=== PATIENT | female | born 1985 | race Caucasian/White ===

== ENCOUNTER 2017-07-21 08:00 | Outpatient (CLI) | payer BC | END 2017-07-21 08:01 | disposition home or self-care (01) | LOC: LAB.R 08:00 | PROVIDERS: ATTEND Family Medicine | DX: N89.8 Other specified noninflammatory disorders of vagina (principal); R10.2 Pelvic and perineal pain | CPT/HCPCS: 87086; 87480; 87510; 87660 ==

== ENCOUNTER 2017-07-24 18:58 | Outpatient (CLI) | payer BC ==
--- NOTE | 2017-07-26 16:23 | Ultrasound Report ---
PELVIC ULTRASOUND: 07/24/2017 CLINICAL INDICATION: Pelvic pain. COMPARISON: 01/13/2015 TECHNIQUE: Transabdominal pelvic ultrasound performed for global evaluation. Transvaginal pelvic ultrasound performed for detailed evaluation. Real-time scanning performed and static images obtained. FINDINGS: The uterus is anteverted, measuring 8.5 x 4.6 x 4.2 cm. The endometrial echo complex measures 6 mm. An IUD is noted within the endometrial canal. No focal myometrial lesion is seen. The right ovary measures 4.2 x 2.8 x 2.3 cm. Normal flow is seen. The left ovary measures 2.6 x 2.0 x 1.7 cm. There is either a mildly dilated left fallopian tube interposed between the uterus and left ovary or a left parovarian cyst, which measures 2.8 x 2.7 x 1.5 cm. Normal flow is seen to the left ovary. No free fluid is present. IMPRESSION: 1. IUD IN THE EXPECTED LOCATION. 2. LEFT PAROVARIAN CYST VERSUS MILDLY DILATED FALLOPIAN TUBE. 3. RESOLUTION OF PREVIOUSLY SEEN HEMORRHAGIC RIGHT OVARIAN CYST. JOB #: [id number] EXT JOB #: [id number] [facility]
== END 2017-07-24 18:59 | disposition home or self-care (01) ==
LOC: DI 18:58
PROVIDERS: ATTEND Family Medicine
DX: R10.2 Pelvic and perineal pain (principal); Z97.5 Presence of (intrauterine) contraceptive device
CPT/HCPCS: 76830; 76856

== ENCOUNTER 2018-01-13 16:08 | Observation (INO) | payer BC ==
--- NOTE | 2018-01-13 16:22 | ED Physician Documentation ---
History of Present Illness - Stated complaint Stated Complaint: UPPER BACK/CHEST PAIN - Chief complaint Chief Complaint: Cardiac - History obtained from History obtained from: Patient - History of Present Illness Timing: How many weeks ago (1) Pain level max: 8 Pain level now: 8 Quality: aching, dull Improved by: standing is more comfortable. Worsened by: movement - Additonal information Additional information: Patient is a 32 year old female with R sided back and chest pain x 1 week. Mild cough. No fevers. Feels mildly dyspneic. No trauma. No falls. Is on OCPs as well as zoloft. No smoking history. No travel. Seen at a walk in clinic today for same, had labs and cxr performed. Sent here for RUQ US. Review of Systems Ten Systems: 10 systems reviewed and negative Constitutional: denies: Fever, Chills Ears: denies: Ear pain Nose: denies: Rhinorrhea / runny nose, Congestion Throat: denies: Sore throat : denies: Now EGA Skin: denies: Rash Musculoskeletal: denies: Neck pain, Back pain Neurologic: denies: Headache PD PAST MEDICAL HISTORY - Past Medical History Past Medical History: Yes Psych: Depression - Past Surgical History Past Surgical History: Yes HEENT: Tonsil/Adenoidectomy - Present Medications Home Medications: Ambulatory Orders Medication Instructions Recorded Confirmed Sertraline HCl [Zoloft] 100 mg PO DAILY 01/13/15 01/13/15 - Allergies Allergies/Adverse Reactions: Allergies Allergy/AdvReac Type Severity Reaction Status Date / Time No Known Drug Allergies Allergy Verified 01/13/15 12:02 - Living Situation Living Situation: reports: With family Living Arrangement: reports: At home - Social History Does the pt smoke?: No Smoking Status: Never smoker Does the pt drink ETOH?: No Does the pt have substance abuse?: No - Family History Family history: reports: Non contributory - Immunizations Immunizations are current?: No - POLST Patient has POLST: No PD ED PE NORMAL - Vitals Vital signs reviewed: Yes - General General: Alert and oriented X 3, No acute distress - HEENT HEENT: PERRL, Moist mucous membranes, Pharynx benign - Neck Neck: Supple, no meningeal sign - Cardiac Cardiac: RRR - Respiratory Respiratory: No respiratory distress, Clear bilaterally - Abdomen Abdomen: Soft, Non distended, Other (mild TTP RUQ.) - Derm Derm: Warm and dry - Extremities Extremities: No edema, No calf tenderness / cord - Neuro Neuro: Alert and oriented X 3 - Psych Psych: Normal mood, Normal affect Results - Vitals Vitals: Vital Signs - 24 hr 01/13/18 01/13/18 16:10 17:57 Temperature 37.2 C Heart Rate 95 85 Respiratory 16 16 Rate Blood Pressure 134/99 H 129/75 O2 Saturation 95 97 Oxygen O2 Source Room air - EKG (time done) 1615 Rate: Rate (enter#) (96) Rhythm: NSR [place]: Normal Intervals: Normal SD QRS: Normal Ischemia: Normal ST segments - Labs Labs: Laboratory Tests 01/13/18 01/13/18 01/13/18 16:32 16:32 16:32 WBC 10.0 RBC 4.55 Hgb 12.0 Hct 37.3 MCV 81.9 MCH 26.3 L MCHC 32.1 RDW 14.3 Plt Count 295 MPV 7.6 L Neut # 7.4 H Lymph # 1.7 [place] # 0.9 Eos # 0.0 Baso # 0.0 Absolute Nucleated RBC 0.00 Nucleated RBC % 0.0 PT 12.7 H INR 1.1 Sodium 134 L Potassium 4.0 Chloride 99 L Carbon Dioxide 26 Anion Gap 9.0 BUN 9 Creatinine 0.6 Estimated GFR (MDRD) 117 Glucose 95 Calcium 8.7 Phosphorus 2.9 Magnesium 2.0 Total Bilirubin < 0.2 L AST 13 ALT < 10 L Alkaline Phosphatase 45 Total Protein 7.9 Albumin 3.6 Globulin 4.3 H Albumin/Globulin Ratio 0.8 L Urine Color Urine Clarity Urine pH Ur Specific [place] Urine Protein Urine Glucose (UA) Urine Ketones Urine Occult Blood Urine Nitrite Urine Bilirubin Urine Urobilinogen Ur Leukocyte Esterase Ur Microscopic Review Urine Culture Comments Urine HCG, Qual 01/13/18 17:02 WBC RBC Hgb Hct MCV MCH MCHC RDW Plt Count MPV Neut # Lymph # [place] # Eos # Baso # Absolute Nucleated RBC Nucleated RBC % PT INR Sodium Potassium Chloride Carbon Dioxide Anion Gap BUN Creatinine Estimated GFR (MDRD) Glucose Calcium Phosphorus Magnesium Total Bilirubin AST ALT Alkaline Phosphatase Total Protein Albumin Globulin Albumin/Globulin Ratio Urine Color YELLOW Urine Clarity CLEAR Urine pH 5.5 Ur Specific [place] 1.010 Urine Protein NEGATIVE Urine Glucose (UA) NEGATIVE Urine Ketones NEGATIVE Urine Occult Blood NEGATIVE Urine Nitrite NEGATIVE Urine Bilirubin NEGATIVE Urine Urobilinogen 0.2 (NORMAL) Ur Leukocyte Esterase NEGATIVE Ur Microscopic Review NOT INDICATED Urine Culture Comments NOT INDICATED Urine HCG, Qual NEGATIVE - Rads (name of study) CTPA Radiology: Prelim report reviewed, EMP read contemporaneously, See rad report ( Study is positive for acute pulmonary embolism. This thrombus within branch vessels supplying the right greater than left lower lobes. There is no evidence of right heart strain. 2. There is patchy consolidation within the right lung base which likely represents developing pulmonary infarction coupled with atelectasis. 3. There is a small right pleural effusion. 4. There is no thoracic aortic dissection. ) RUQ US Radiology: Prelim report reviewed, EMP read contemporaneously, See rad report ( Negative right upper quadrant ultrasound. ) PD MEDICAL DECISION MAKING - ED course Complexity details: reviewed old records, reviewed results, re-evaluated patient , considered differential, d/w patient, d/w family ED course: Patient is a 32-year-old female who presents to the emergency department with right-sided chest pain, pleuritic. Also has tachycardia but no hypoxia. Had normal blood work just prior to arrival. Had a chest x-ray that revealed a small right-sided pleural effusion. CT pulmonary angiogram was undertaken for possible PE and was found to have bilateral subsegmental pulmonary emboli. She is having significant pain in the emergency department as well. Given Toradol and morphine. Also started on Lovenox after discussion with the hospitalist. Right upper quadrant ultrasound is negative. No calf tenderness or cord. Possible related to her recent oral contraceptives? Discussed the case with Dr. Geiger, hospitalist who accepts. This document was made in part using voice recognition software. While efforts are made to proofread this document, sound alike and grammatical errors may occur. Departure - Departure Disposition: ED Place in Observation Clinical Impression: Bilateral pulmonary embolism, Pulmonary infarct Pulmonary embolism Qualifiers: Pulmonary embolism type: other Chronicity: acute Acute cor pulmonale presence: without acute cor pulmonale Qualified Code(s): I26.99 - Other pulmonary embolism without acute cor pulmonale Chest pain Qualifiers: Chest pain type: chest pain on breathing Qualified Code(s): R07.1 - Chest pain on breathing Condition: Stable Discharge Date/Time: 01/13/18 19:04
[2018-01-13] MEDS ORDERED: KETOROLAC 60 MG/2 ML VIAL IVP STA (16:52)
[2018-01-13 17:08] LABS: BILIRUBIN,URINE NEGATIVE (NEGATIVE); GLUCOSE, URINE (UA) NEGATIVE (NEGATIVE); KETONES,URINE (UA) NEGATIVE (NEGATIVE); LEUKOCYTE ESTERASE, URINE NEGATIVE (NEGATIVE); NITRITE,URINE NEGATIVE (NEGATIVE); OCCULT BLOOD,URINE NEGATIVE (NEGATIVE); PH,URINE 5.5 PH (5.0-7.5); PROTEIN,URINE NEGATIVE (NEGATIVE); UROBILINOGEN,URINE 0.2 (NORMAL) E.U./dL (NORMAL)
[2018-01-13] MEDS ORDERED: IOPAMIDOL-300 100 ML VIAL ONE (17:09)
[2018-01-13 17:13] LABS: CLARITY,URINE CLEAR (CLEAR); HCG UR QUAL NEGATIVE
[2018-01-13] MEDS ORDERED: IOPAMIDOL-300 100 ML VIAL IVP ONE (17:45)
[2018-01-13] MEDS ORDERED: ENOXAPARIN 80 MG/0.8 ML SYRINGE SUBQ STA (18:06)
--- NOTE | 2018-01-13 18:10 | CT Report ---
EXAM: CT ANGIOGRAM CHEST EXAM DATE: 01/13/2018 05:45 PM. CLINICAL HISTORY: Chest pain COMPARISON: None. TECHNIQUE: Routine helical imaging was performed through the chest in the pulmonary arterial phase. I V Contrast: 80 cc Isovue 300. Reconstructions: Coronal 3-D MIP reconstructions.Sagittal and coronal. In accordance with CT protocol optimization, one or more of the following dose reduction techniques w ere utilized for this exam: automated exposure control, adjustment of mA and/or KV based on patient s ize, or use of iterative reconstructive technique. FINDINGS: Pulmonary Arteries: Diagnostic quality: Adequate through the segmental arteries. There is pulmonary embolism within [facility] vessels supplying the right and left lower lobes. RV/LV is within normal limits. There is no interventricular septal bowing. There is no reflux of cont rast material in the IVC. Lungs/Pleura: There is patchy consolidation within the right lower lobe. This may represent developin g pulmonary infarct. There is a small right pleural effusion. There is no evidence of pneumothorax. Mediastinum: Normal. No cardiac enlargement or adenopathy. Thoracic Aorta: Unremarkable. Upper Abdomen: Unremarkable. Other: None. IMPRESSION: 1. Study is positive for acute pulmonary embolism. This thrombus within branch vessels supplying the right greater than left lower lobes. There is no evidence of right heart strain. 2. There is patchy consolidation within the right lung base which likely represents developing pulmon flakito infarction coupled with atelectasis. 3. There is a small right pleural effusion. 4. There is no thoracic aortic dissection. [facility] The above findings were discussed with Dr Klein by Dr. Kat Briseno at 18:09 hrs on 01/13/18. Referring Provider Line: [phone] SITE ID: [id number]
--- NOTE | 2018-01-13 18:10 | Ultrasound Report ---
EXAM: ABDOMEN ULTRASOUND LIMITED, RUQ EXAM DATE: 01/13/2018 05:37 PM. CLINICAL HISTORY: Abdominal pain COMPARISON: None. TECHNIQUE: Real-time scanning was performed with static images obtained. FINDINGS: Liver: Subcentimeter hyperechoic focus within the right hepatic lobe could represent a small meningio ma. No suspicious hepatic abnormalities are seen. Main portal vein flow: Hepatopetal. Gallbladder: No stones, wall thickening, or sonographic Howard's sign. Biliary System: CBD measures 5 mm. No intrahepatic or extrahepatic ductal dilatation. Other: The visualized pancreas and right kidney are unremarkable. IMPRESSION: Negative right upper quadrant ultrasound. [facility] Referring Provider Line: [phone] SITE ID: [id number]
[2018-01-13] MEDS ORDERED: MORPHINE 10 MG/ML VIAL IVP STA (18:11)
--- NOTE | 2018-01-13 18:13 | HISTORY & PHYSICAL EXAMINATION ---
Chief Complaint - Chief Complaint Chief Complaint: Chest pain History of Present Illness - Admitted From Admitted From:: Emergency department - History Obtained From Records Reviewed: Yes History obtained from: Patient Exam Limitations: None - History of Present Illness HPI Comment/Other: Patient is a 32-year-old female with a past medical history significant for depression who presented to the emergency department with a chief complaint of right-sided chest pain. She states that the chest pain started exactly 1 week ago. She states that it started with right-sided pain when she woke up in the morning. She thought that she had just slept on her side incorrectly. However the pain continued for the next 2 days. She states that the pain was much worse when she took a deep breath. She states that she was not short of breath but because breathing hurt she did not want to take a breath. She states that after 2 days the pain moved from the right side of the chest to the left side of the chest. She states that the pain then continued in the left side for 2 days and then went back to the right side. She states that the pain is located all over the right chest but in around the lower rib cage. She states that is worse with a deep breath. She states it does not radiate to her left arm or jaw. She states that the only thing that makes it better is just staying still. She states that over the last 2 days the pain has been there all the time not just with deep breathing. She states that even lying down flat was making the pain worse. She was concerned that she must have infection and she went to urgent care today and was sent to the emergency department for a right upper quadrant ultrasound. Of note the patient states that she previously used an IUD for control but that caused multiple cyst to rupture therefore she was switched to an oral control pill just 1 month ago. She denies smoking. The patient denies any recent travel. She denies any recent long car rides. She denies any recent plane travel. She denies any family history of DVTs or PEs. The patient denies any fevers, chills, headaches, blurred vision, runny nose, sore throat, nasal congestion, difficulty swallowing, orthopnea, PND, lower extremity swelling, abdominal pain, nausea, vomiting, diarrhea, constipation, dysuria, increased urinary frequency, urinary urgency, back pain, joint pain, muscle aches, joint swelling, neck stiffness, recent unintentional weight loss, night sweats, changes in appetite, hair loss, skin rashes or any focal neurologic deficits On presentation to the emergency department the patient was afebrile heart rate was 95 blood pressure was stable and she was not in any acute respiratory distress saturating well on room air. The patient's lab work revealed sodium of 134 otherwise all her electrolytes were within normal limits. The patient's CBC was all within normal limits and her UA was negative. The patient underwent a EKG which showed normal sinus rhythm at 96. The patient underwent an ultrasound of her abdomen which revealed no acute changes. The patient then underwent a CT angiogram of her thorax which showed acute pulmonary embolism within branch vessel supplying the right greater than the left lobes without right heart strain. She also had patchy consolidation within the right lung base which likely represented pulmonary infarction coupled with atelectasis. The patient continued to have severe pain and required morphine in the emergency department. The patient was placed in observation overnight for control of her chest pain and to start treatment for pulmonary embolism. In the emergency department the patient did receive Lovenox subQ. History - Past Medical History Psych: reports: Depression MRSA Hx?: No - Past Surgical History HEENT: reports: Tonsil/Adenoidectomy - Family & Social History Family History: Mother: Alive and Well, Hyperlipidemia (Maternal grandfather), Father: Alive and Well, Other family: Hyperlipidemia Living arrangement: At home Living Situation: With spouse/s.o. Social History Notes: The patient lives in [place] with her and 2 children. She has 1 biological kid and one step kids. She is originally from the [facility] but not from [facility]. 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 She is . She does not smoke cigarettes, she rarely drinks alcohol and she denies any illicit drug use. - POLST Patient has POLST: No POLST Status: Full Code Meds/Allgy - Home Medications Home Medications: Ambulatory Orders Medication Instructions Recorded Confirmed Sertraline HCl [Zoloft] 100 mg PO DAILY 01/13/15 01/13/15 - Allergies Allergies/Adverse Reactions: Allergies Allergy/AdvReac Type Severity Reaction Status Date / Time No Known Drug Allergies Allergy Verified 01/13/15 12:02 Review of Systems - Other Findings Other Findings: A comprehensive review of systems was performed the pertinent positives and negatives are stated above in the HPI and the remainder of the review of systems is negative. Exam - Vital Signs Reviewed Vital Signs: Yes Vital Signs: Vital Signs x48h Temp Pulse Resp BP Pulse Ox 01/13/18 17:57 85 16 129/75 97 01/13/18 16:10 37.2 C 95 16 134/99 H 95 - Physical Exam General Appearance: positive: Alert, Other (Patient is tearful and very upset by her diagnosis) Eyes Bilateral: positive: Normal inspection, PERRL, EOMI, No lid inflammation, Conjunctivae nml, No scleral icterus ENT: positive: ENT inspection nml, Pharynx nml, No signs of dehydration. negative: Purulent nasal drainage, Pharyngeal erythema, Oral lesions Neck: positive: Nml inspection, Thyroid nml, No JVD, Trachea midline. negative : Thyromegaly, Lymphadenopathy (R), Lymphadenopathy (L), Kernig's sign, Carotid bruit, Tracheal deviation Respiratory: positive: Chest non-tender, Rhonchi (Right lower lung), Other ( Patient has pain when she takes deep breath) Cardiovascular: positive: Regular rate & rhythm, No murmur, No gallop Peripheral Pulses: positive: 2+ Abdomen: positive: Non-tender, No organomegaly, Nml bowel sounds, No distention. negative: Guarding, Rebound Back: positive: Nml inspection. negative: CVA tenderness (R), CVA tenderness (L ) Skin: positive: Color nml, No rash, Warm. negative: Cyanosis, Diaphoresis, Pallor, Skin rash Extremities: positive: Non-tender, Full ROM, Nml appearance, No pedal edema Neurologic/Psychiatric: positive: Oriented x3, CN's nml (2-12), Motor nml, Sensation nml, Mood/affect nml Conclusion/Plan - Problem List (1) Bilateral pulmonary embolism Conclusion/Plan: Patient presented with right-sided chest pain ongoing for about the last week. Patient's pain originally started on the right side of her chest then moved to the left side and then back to the right side. It was worse with deep breathing. She began having it all the time the last 2 days. The patient admits to starting control pills 1 month ago. She states she is not a smoker. She denied having any recent travel. She denied any long car trips or plane rides. She denied any family history of pulmonary embolisms or DVTs. The patient was found to have bilateral pulmonary emboli on CT angiogram of her chest. Plan: Lovenox and Coumadin Pain control with oxycodone, Tylenol and IV morphine Supplemental oxygen as needed Teaching for Lovenox injections We will check a juarez comparison between Coumadin and other new or anticoagulants for the patient in the morning (2) Chest pain Conclusion/Plan: Patient has right-sided chest pain likely secondary to pulmonary emboli. The patient's CT angiogram thorax shows patchy consolidation within the right lung base which likely represents developing pulmonary infarction coupled with atelectasis which is likely cause of the pain. Patient will get IV morphine, oral Tylenol and oxycodone as needed for pain control. Patient will be treated for pulmonary emboli with Lovenox and Coumadin Qualifiers: Chest pain type: chest pain on breathing Qualified Code(s): R07.1 - Chest pain on breathing; R07.81 - Pleurodynia (3) Depression Conclusion/Plan: Continue patient on home dose of Zoloft Stable Qualifiers: Depression Type: unspecified Qualified Code(s): F32.9 - Major depressive disorder, single episode, unspecified - Lab Results Lab results reviewed: Yes Fish Bones: 01/13/18 16:32 01/13/18 16:32 Other Lab Results: Laboratory Results WBC 10.0 x10^3/uL (4.8-10.8) 01/13/18 16:32 RBC 4.55 10^6/uL (4.20-5.40) 01/13/18 16:32 Hgb 12.0 g/dL (12.0-16.0) 01/13/18 16:32 Hct 37.3 % (37.0-47.0) 01/13/18 16:32 MCV 81.9 fL (81.0-99.0) 01/13/18 16:32 MCH 26.3 pg (27.0-31.0) L 01/13/18 16:32 MCHC 32.1 g/dL (32.0-36.0) 01/13/18 16:32 RDW 14.3 % (12.0-15.0) 01/13/18 16:32 Plt Count 295 10^3/uL (130-450) 01/13/18 16:32 MPV 7.6 fL (7.9-10.8) L 01/13/18 16:32 Neut # 7.4 10^3/uL (1.5-6.6) H 01/13/18 16:32 Lymph # 1.7 10^3/uL (1.5-3.5) 01/13/18 16:32 [place] # 0.9 10^3/uL (0.0-1.0) 01/13/18 16:32 Eos # 0.0 10^3/uL (0.0-0.7) 01/13/18 16:32 Baso # 0.0 10^3/uL (0.0-0.1) 01/13/18 16:32 Absolute Nucleated RBC 0.00 x10^3/uL 01/13/18 16:32 Nucleated RBC % 0.0 /100WBC 01/13/18 16:32 PT 12.7 secs (9.9-12.6) H 01/13/18 16:32 INR 1.1 (0.8-1.2) 01/13/18 16:32 Sodium 134 mmol/L (135-145) L 01/13/18 16:32 Potassium 4.0 mmol/L (3.5-5.0) 01/13/18 16:32 Chloride 99 mmol/L (101-111) L 01/13/18 16:32 Carbon Dioxide 26 mmol/L (21-32) 01/13/18 16:32 Anion Gap 9.0 (6-13) 01/13/18 16:32 BUN 9 mg/dL (6-20) 01/13/18 16:32 Creatinine 0.6 mg/dL (0.4-1.0) 01/13/18 16:32 Estimated GFR (MDRD) 117 (>89) 01/13/18 16:32 Glucose 95 mg/dL (70-100) 01/13/18 16:32 Calcium 8.7 mg/dL (8.5-10.3) 01/13/18 16:32 Phosphorus 2.9 mg/dL (2.5-4.6) 01/13/18 16:32 Magnesium 2.0 mg/dL (1.7-2.8) 01/13/18 16:32 Total Bilirubin < 0.2 mg/dL (0.2-1.0) L 01/13/18 16:32 AST 13 IU/L (10-42) 01/13/18 16:32 ALT < 10 IU/L (10-60) L 01/13/18 16:32 Alkaline Phosphatase 45 IU/L (42-121) 01/13/18 16:32 Total Protein 7.9 g/dL (6.7-8.2) 01/13/18 16:32 Albumin 3.6 g/dL (3.2-5.5) 01/13/18 16:32 Globulin 4.3 g/dL (2.1-4.2) H 01/13/18 16:32 Albumin/Globulin Ratio 0.8 (1.0-2.2) L 01/13/18 16:32 Urine Color YELLOW 01/13/18 17:02 Urine Clarity CLEAR (CLEAR) 01/13/18 17:02 Urine pH 5.5 PH (5.0-7.5) 01/13/18 17:02 Ur Specific [place] 1.010 (1.002-1.030) 01/13/18 17:02 Urine Protein NEGATIVE mg/dL (NEGATIVE) 01/13/18 17:02 Urine Glucose (UA) NEGATIVE mg/dL (NEGATIVE) 01/13/18 17:02 Urine Ketones NEGATIVE mg/dL (NEGATIVE) 01/13/18 17:02 Urine Occult Blood NEGATIVE (NEGATIVE) 01/13/18 17:02 Urine Nitrite NEGATIVE (NEGATIVE) 01/13/18 17:02 Urine Bilirubin NEGATIVE (NEGATIVE) 01/13/18 17:02 Urine Urobilinogen 0.2 (NORMAL) E.U./dL (NORMAL) 01/13/18 17:02 Ur Leukocyte Esterase NEGATIVE (NEGATIVE) 01/13/18 17:02 Ur Microscopic Review NOT INDICATED 01/13/18 17:02 Urine Culture Comments NOT INDICATED 01/13/18 17:02 Urine HCG, Qual NEGATIVE 01/13/18 17:02 - Diagnostic Imaging Results Diagnostic Imaging Results: positive: Final report reviewed Diagnostic Imaging Results Comments: Abdominal ultrasound Impression: Negative right upper quadrant ultrasound CT angiogram chest/thorax Impression: 1. Study is positive for acute pulmonary embolism. This thrombus within branch vessels supplying the right greater than the left lobes. There is no evidence of right heart strain. 2. There is patchy consolidation within the right lung base which likely represents developing pulmonary infarction coupled with atelectasis. 3. There is small right pleural effusion. 4. There is no thoracic aortic dissection. - EKG Results EKG Interpreted Independently: Yes EKG Findings: Normal sinus rhythm Core Measures - Anticipated LOS I expect patient to be DC'd or transferred within 96 hours.: Yes - DVT/VTE - Prophylaxis VTE/DVT Device ordered at admit?: Yes
[2018-01-13] MEDS ORDERED: ACETAMINOPHEN 325 MG TABLET PO PRN (18:17)
[2018-01-13] MEDS ORDERED: oxyCODONE 5 MG TABLET PO PRN (18:17)
[2018-01-13] MEDS ORDERED: MORPHINE 2 MG/ML SYRINGE IVP PRN (18:17)
[2018-01-13] MEDS ORDERED: PROCHLORPERAZINE 10 MG/2 ML VIAL IVP PRN (18:17)
[2018-01-13] MEDS ORDERED: ZOLPIDEM 5 MG TABLET PO PRN (18:17)
[2018-01-13] MEDS ORDERED: SODIUM CHLORIDE FLUSH 0.9% 10 ML SYRINGE IVP PRN (18:17)
[2018-01-13] MEDS ORDERED: ONDANSETRON 4 MG/2 ML VIAL IVP PRN (18:17)
[2018-01-13 18:34] LABS: BASOPHILS % (AUTO) 0.3 %; EOSINOPHILS % (AUTO) 0.1 %; LYMPHOCYTES # (AUTO) 1.7 10^3/uL (1.5-3.5); MEAN CORPUSCULAR HEMOGLOBIN 26.3 pg (27.0-31.0); MEAN CORPUSCULAR HGB CONC 32.1 g/dL (32.0-36.0); MEAN CORPUSCULAR VOLUME 81.9 fL (81.0-99.0); MEAN PLATELET VOLUME 7.6 fL (7.9-10.8); MONOCYTES # (AUTO) 0.9 10^3/uL (0.0-1.0); MONOCYTES % (AUTO) 8.9 %; NEUTROPHILS # (AUTO) 7.4 10^3/uL (1.5-6.6); NEUTROPHILS % (AUTO) 73.7 %; PLT - PLATELET COUNT 295 10^3/uL (130-450); RED BLOOD COUNT 4.55 10^6/uL (4.20-5.40); RED CELL DISTRIBUTION WIDTH 14.3 % (12.0-15.0)
[2018-01-13 18:40] LABS: INR 1.1 (0.8-1.2); PT - PROTHROMBIN TIME 12.7 secs (9.9-12.6)
[2018-01-13 18:43] LABS: ALBUMIN 3.6 g/dL (3.2-5.5); ALBUMIN/GLOBULIN RATIO 0.8 (1.0-2.2); ALKALINE PHOSPHATASE 45 IU/L (42-121); ALT ALANINE AMINOTRANSFERASE < 10 IU/L (10-60); AST ASPARTATE AMINOTRANSFERASE 13 IU/L (10-42); BILIRUBIN,TOTAL < 0.2 mg/dL (0.2-1.0); BUN - BLOOD UREA NITROGEN 9 mg/dL (6-20); CALCIUM 8.7 mg/dL (8.5-10.3); CARBON DIOXIDE - CO2 26 mmol/L (21-32); CHLORIDE 99 mmol/L (101-111); CREATININE 0.6 mg/dL (0.4-1.0); GFR - MDRD 117 (>89); GLUCOSE 95 mg/dL (70-100); PHOSPHORUS 2.9 mg/dL (2.5-4.6); SODIUM 134 mmol/L (135-145); TOTAL PROTEIN 7.9 g/dL (6.7-8.2)
[2018-01-13] MEDS ORDERED: WARFARIN 5 MG TABLET PO SCH (19:00)
[2018-01-13] MEDS: oxyCODONE 5 MG TABLET PO PRN (22:02)
[2018-01-13] MEDS: SODIUM CHLORIDE FLUSH 0.9% 10 ML SYRINGE IVP SCH (23:24)
[2018-01-14] MEDS: oxyCODONE 5 MG TABLET PO PRN ×2 (04:42→09:20)
[2018-01-14] MEDS ORDERED: ENOXAPARIN 80 MG/0.8 ML SYRINGE SUBQ SCH (06:00)
[2018-01-14 06:34] LABS: BASOPHILS % (AUTO) 0.5 %; EOSINOPHILS % (AUTO) 0.5 %; HGB - HEMOGLOBIN 11.5 g/dL (12.0-16.0); LYMPHOCYTES # (AUTO) 1.7 10^3/uL (1.5-3.5); LYMPHOCYTES % (AUTO) 20.5 %; MEAN CORPUSCULAR HEMOGLOBIN 26.3 pg (27.0-31.0); MEAN CORPUSCULAR HGB CONC 32.1 g/dL (32.0-36.0); MEAN CORPUSCULAR VOLUME 81.8 fL (81.0-99.0); MEAN PLATELET VOLUME 7.2 fL (7.9-10.8); MONOCYTES # (AUTO) 0.8 10^3/uL (0.0-1.0); MONOCYTES % (AUTO) 9.7 %; NEUTROPHILS # (AUTO) 5.9 10^3/uL (1.5-6.6); NEUTROPHILS % (AUTO) 68.8 %; PLT - PLATELET COUNT 262 10^3/uL (130-450); RED BLOOD COUNT 4.39 10^6/uL (4.20-5.40); RED CELL DISTRIBUTION WIDTH 14.2 % (12.0-15.0); WHITE BLOOD COUNT 8.5 x10^3/uL (4.8-10.8)
[2018-01-14 06:38] LABS: INR 1.2 (0.8-1.2); PT - PROTHROMBIN TIME 13.3 secs (9.9-12.6)
[2018-01-14 06:48] LABS: ALBUMIN 3.2 g/dL (3.2-5.5); ALBUMIN/GLOBULIN RATIO 0.8 (1.0-2.2); ALKALINE PHOSPHATASE 42 IU/L (42-121); ALT ALANINE AMINOTRANSFERASE < 10 IU/L (10-60); AST ASPARTATE AMINOTRANSFERASE 12 IU/L (10-42); BILIRUBIN,TOTAL 0.2 mg/dL (0.2-1.0); BUN - BLOOD UREA NITROGEN 9 mg/dL (6-20); CALCIUM 8.3 mg/dL (8.5-10.3); CARBON DIOXIDE - CO2 28 mmol/L (21-32); CHLORIDE 99 mmol/L (101-111); CREATININE 0.7 mg/dL (0.4-1.0); GFR - MDRD 98 (>89); GLUCOSE 96 mg/dL (70-100); MAGNESIUM 2.4 mg/dL (1.7-2.8); PHOSPHORUS 3.2 mg/dL (2.5-4.6); SODIUM 134 mmol/L (135-145); TOTAL PROTEIN 7.1 g/dL (6.7-8.2)
[2018-01-14 07:27] VITALS: BP 118/63
[2018-01-14] MEDS ORDERED: FAMOTIDINE 20 MG TABLET PO SCH (09:00)
[2018-01-14] MEDS ORDERED: POLYETHYLENE GLYCOL 3350 17 GM PACKET PO SCH (09:00)
[2018-01-14] MEDS ORDERED: SERTRALINE 50 MG TABLET PO SCH (09:00)
[2018-01-14] MEDS: SODIUM CHLORIDE FLUSH 0.9% 10 ML SYRINGE IVP SCH (09:21)
--- NOTE | 2018-01-14 10:31 | Discharge Plan ---
Discharge Plan Disposition: Home, Self Care Condition: Stable Prescriptions: oxyCODONE [Roxicodone] 5 mg PO Q4HR PRN #42 tablet PRN Reason: Pain Or Fever > 38c (100.4f) guaiFENesin [Mucinex] 600 mg PO BID PRN #20 tablet PRN Reason: Cough Rivaroxaban [Xarelto] 15 mg PO Q12H #42 tablet Rivaroxaban [Xarelto] 20 mg PO DAILY #90 tablet Diet: Regular Activity Restrictions: Activity as Tolerated Shower Restrictions: No Driving Restrictions: No Weight Bearing: Full Weight Instruction Topics: Embolism Pulmonary, Anticoagulants Additional Instructions or Follow Up instructions: You presented to the emergency department with right-sided chest pain. You were found to have bilateral pulmonary emboli. You were started on treatment here in the hospital overnight and appeared to be stable. You will need to continue on treatment for pulmonary emboli for at least 3 months and up to 6 months. It appears most likely that you had the pulmonary emboli due to your use of control pills and we recommend that you stop taking them. You are being prescribed Xarelto which initially will take 15 mg twice a day for 21 days then take 20 mg daily for 3-6 months. I have also prescribed you oxycodone that you can take as needed for your chest pain and Mucinex for cough. Please follow-up with your primary care physician for further management. No Smoking: If you smoke, Please STOP! Call for help. Follow-up with: Zakia Eng DO [Primary Care Provider] -
--- NOTE | 2018-01-14 12:37 | DISCHARGE SUMMARY ---
Discharge Summary Admit Date: 01/13/18 Discharge Date: 01/14/18 Discharging Provider: Sukhdeep Geiger MD Primary Care Provider: Tamera Eng MD Code Status: Attempt Resuscitation Condition at Discharge: Fair Discharge Disposition: 01 Home, Self Care - DIAGNOSES Admission Diagnoses: 1. Bilateral pulmonary embolism 2. Chest pain 3. Depression Discharge Diagnoses with Status of Each Condition: 1. Bilateral pulmonary embolism: Stable 2. Chest pain: Stable 3. Depression: Stable - HPI History of Present Illness: Patient is a 32-year-old female with a past medical history significant for depression who presented to the emergency department with a chief complaint of right-sided chest pain. She states that the chest pain started exactly 1 week ago. She states that it started with right-sided pain when she woke up in the morning. She thought that she had just slept on her side incorrectly. However the pain continued for the next 2 days. She states that the pain was much worse when she took a deep breath. She states that she was not short of breath but because breathing hurt she did not want to take a breath. She states that after 2 days the pain moved from the right side of the chest to the left side of the chest. She states that the pain then continued in the left side for 2 days and then went back to the right side. She states that the pain is located all over the right chest but in around the lower rib cage. She states that is worse with a deep breath. She states it does not radiate to her left arm or jaw. She states that the only thing that makes it better is just staying still. She states that over the last 2 days the pain has been there all the time not just with deep breathing. She states that even lying down flat was making the pain worse. She was concerned that she must have infection and she went to urgent care today and was sent to the emergency department for a right upper quadrant ultrasound. Of note the patient states that she previously used an IUD for control but that caused multiple cyst to rupture therefore she was switched to an oral control pill just 1 month ago. She denies smoking. The patient denies any recent travel. She denies any recent long car rides. She denies any recent plane travel. She denies any family history of DVTs or PEs. The patient denies any fevers, chills, headaches, blurred vision, runny nose, sore throat, nasal congestion, difficulty swallowing, orthopnea, PND, lower extremity swelling, abdominal pain, nausea, vomiting, diarrhea, constipation, dysuria, increased urinary frequency, urinary urgency, back pain, joint pain, muscle aches, joint swelling, neck stiffness, recent unintentional weight loss, night sweats, changes in appetite, hair loss, skin rashes or any focal neurologic deficits On presentation to the emergency department the patient was afebrile heart rate was 95 blood pressure was stable and she was not in any acute respiratory distress saturating well on room air. The patient's lab work revealed sodium of 134 otherwise all her electrolytes were within normal limits. The patient's CBC was all within normal limits and her UA was negative. The patient underwent a EKG which showed normal sinus rhythm at 96. The patient underwent an ultrasound of her abdomen which revealed no acute changes. The patient then underwent a CT angiogram of her thorax which showed acute pulmonary embolism within branch vessel supplying the right greater than the left lobes without right heart strain. She also had patchy consolidation within the right lung base which likely represented pulmonary infarction coupled with atelectasis. The patient continued to have severe pain and required morphine in the emergency department. The patient was placed in observation overnight for control of her chest pain and to start treatment for pulmonary embolism. In the emergency department the patient did receive Lovenox subQ. - HOSPITAL COURSE Hospital Course: The patient was hospitalized and observed overnight. She did not have any increasing shortness of air or hypoxia. The patient's chest pain was controlled with oxycodone. The patient was discharged home on Xarelto 15 mg twice daily for 21 days then 20 mg daily. The patient will follow up with her primary care physician. It appears that the patient's bilateral pulmonary emboli were due to her use of control pills. We instructed the patient to stop using control pills. She will need 3-6 months of treatment for her bilateral pulmonary emboli. I would recommend longer duration given the severity of her clots. The patient also did have some hemoptysis which was very mild but likely related to her clots. Patient was discharged home in stable condition. She was also prescribed oxycodone as needed for pain and Mucinex for coughing. - ALLERGIES Allergies/Adverse Reactions: Allergies Allergy/AdvReac Type Severity Reaction Status Date / Time No Known Drug Allergies Allergy Verified 01/13/15 12:02 - MEDICATIONS Home Medications: Ambulatory Orders Medication Instructions Recorded Confirmed Sertraline HCl [Zoloft] 100 mg PO DAILY 01/13/15 01/14/18 Rivaroxaban [Xarelto] 15 mg PO Q12H #42 tablet 01/14/18 Rivaroxaban [Xarelto] 20 mg PO DAILY #90 tablet 01/14/18 guaiFENesin [Mucinex] 600 mg PO BID PRN #20 tablet 01/14/18 oxyCODONE [Roxicodone] 5 mg PO Q4HR PRN #42 tablet 01/14/18 - PHYSICAL EXAM AT DISCHARGE General Appearance: positive: No acute distress, Alert Eyes Bilateral: positive: Normal inspection, PERRL, EOMI, No lid inflammation, Conjunctivae nml, No scleral icterus ENT: positive: ENT inspection nml, Pharynx nml, No signs of dehydration. negative: Purulent nasal drainage, Pharyngeal erythema, Oral lesions Neck: positive: Nml inspection, Thyroid nml, No JVD, Trachea midline. negative : Thyromegaly, Lymphadenopathy (R), Lymphadenopathy (L), Stiff neck, Carotid bruit, Tracheal deviation Respiratory: positive: Chest non-tender, Rhonchi (Right side mostly) Cardiovascular: positive: Regular rate & rhythm, No murmur, No gallop Peripheral Pulses: positive: 2+ Abdomen: positive: Non-tender, No organomegaly, Nml bowel sounds, No distention Back: positive: Nml inspection. negative: CVA tenderness (R), CVA tenderness (L ) Skin: positive: Color nml, No rash, Warm. negative: Diaphoresis, Pallor, Skin rash Extremities: positive: Non-tender, Full ROM, Nml appearance, No pedal edema Neurologic/Psychiatric: positive: Oriented x3, CN's nml (2-12), Motor nml, Sensation nml, Mood/affect nml - LABS Result Diagrams: 01/14/18 06:25 01/14/18 06:25 Other Lab Results: Laboratory Results WBC 8.5 x10^3/uL (4.8-10.8) 01/14/18 06:25 RBC 4.39 10^6/uL (4.20-5.40) 01/14/18 06:25 Hgb 11.5 g/dL (12.0-16.0) L 01/14/18 06:25 Hct 35.9 % (37.0-47.0) L 01/14/18 06:25 MCV 81.8 fL (81.0-99.0) 01/14/18 06:25 MCH 26.3 pg (27.0-31.0) L 01/14/18 06:25 MCHC 32.1 g/dL (32.0-36.0) 01/14/18 06:25 RDW 14.2 % (12.0-15.0) 01/14/18 06:25 Plt Count 262 10^3/uL (130-450) 01/14/18 06:25 MPV 7.2 fL (7.9-10.8) L 01/14/18 06:25 Neut # 5.9 10^3/uL (1.5-6.6) 01/14/18 06:25 Lymph # 1.7 10^3/uL (1.5-3.5) 01/14/18 06:25 [place] # 0.8 10^3/uL (0.0-1.0) 01/14/18 06:25 Eos # 0.0 10^3/uL (0.0-0.7) 01/14/18 06:25 Baso # 0.0 10^3/uL (0.0-0.1) 01/14/18 06:25 Absolute Nucleated RBC 0.00 x10^3/uL 01/14/18 06:25 Nucleated RBC % 0.0 /100WBC 01/14/18 06:25 PT 13.3 secs (9.9-12.6) H 01/14/18 06:25 INR 1.2 (0.8-1.2) 01/14/18 06:25 Sodium 134 mmol/L (135-145) L 01/14/18 06:25 Potassium 3.6 mmol/L (3.5-5.0) 01/14/18 06:25 Chloride 99 mmol/L (101-111) L 01/14/18 06:25 Carbon Dioxide 28 mmol/L (21-32) 01/14/18 06:25 Anion Gap 7.0 (6-13) 01/14/18 06:25 BUN 9 mg/dL (6-20) 04/22/18 06:25 Creatinine 0.7 mg/dL (0.4-1.0) 01/14/18 06:25 Estimated GFR (MDRD) 98 (>89) 01/14/18 06:25 Glucose 96 mg/dL (70-100) 01/14/18 06:25 Calcium 8.3 mg/dL (8.5-10.3) L 01/14/18 06:25 Phosphorus 3.2 mg/dL (2.5-4.6) 01/14/18 06:25 Magnesium 2.4 mg/dL (1.7-2.8) 01/14/18 06:25 Total Bilirubin 0.2 mg/dL (0.2-1.0) 01/14/18 06:25 AST 12 IU/L (10-42) 01/14/18 06:25 ALT < 10 IU/L (10-60) L 01/14/18 06:25 Alkaline Phosphatase 42 IU/L (42-121) 01/14/18 06:25 Total Protein 7.1 g/dL (6.7-8.2) 01/14/18 06:25 Albumin 3.2 g/dL (3.2-5.5) 01/14/18 06:25 Globulin 3.9 g/dL (2.1-4.2) 01/14/18 06:25 Albumin/Globulin Ratio 0.8 (1.0-2.2) L 01/14/18 06:25 Urine Color YELLOW 01/13/18 17:02 Urine Clarity CLEAR (CLEAR) 01/13/18 17:02 Urine pH 5.5 PH (5.0-7.5) 01/13/18 17:02 Ur Specific [place] 1.010 (1.002-1.030) 01/13/18 17:02 Urine Protein NEGATIVE mg/dL (NEGATIVE) 01/13/18 17:02 Urine Glucose (UA) NEGATIVE mg/dL (NEGATIVE) 01/13/18 17:02 Urine Ketones NEGATIVE mg/dL (NEGATIVE) 01/13/18 17:02 Urine Occult Blood NEGATIVE (NEGATIVE) 01/13/18 17:02 Urine Nitrite NEGATIVE (NEGATIVE) 01/13/18 17:02 Urine Bilirubin NEGATIVE (NEGATIVE) 01/13/18 17:02 Urine Urobilinogen 0.2 (NORMAL) E.U./dL (NORMAL) 01/13/18 17:02 Ur Leukocyte Esterase NEGATIVE (NEGATIVE) 01/13/18 17:02 Ur Microscopic Review NOT INDICATED 01/13/18 17:02 Urine Culture Comments NOT INDICATED 01/13/18 17:02 Urine HCG, Qual NEGATIVE 01/13/18 17:02 - DIAGNOSTIC IMAGING Diagnostic Imaging Results: Final report reviewed Diagnostic Imaging Results Comments: Abdominal ultrasound Impression: Negative right upper quadrant ultrasound CT angiogram chest/thorax Impression: 1. Study is positive for acute pulmonary embolism. This thrombus within branch vessels supplying the right greater than the left lobes. There is no evidence of right heart strain. 2. There is patchy consolidation within the right lung base which likely represents developing pulmonary infarction coupled with atelectasis. 3. There is small right pleural effusion. 4. There is no thoracic aortic dissection. - FOLLOW UP Follow Up: Patient was prescribed Xarelto which she will take for the next 3-6 months or bilateral pulmonary emboli. The patient was also given oxycodone for pain which should last her for the next week or 2 as she was having severe chest pain from the PEs. The patient was given Mucinex for coughing. The patient will follow up with her primary care physician and may need further hypercoagulable workup. - TIME SPENT Time Spent in Discharge (Minutes): 35
== END 2018-01-14 11:18 | disposition home or self-care (01) ==
LOC: ED 16:08 → OBS 18:17
PROVIDERS: ADMIT Internal Medicine; ATTEND Internal Medicine
DX: I26.99 Other pulmonary embolism without acute cor pulmonale (principal); F32.9 Major depressive disorder, single episode, unspecified; Z79.3 Long term (current) use of hormonal contraceptives; Z79.899 Other long term (current) drug therapy; J98.11 Atelectasis
CPT/HCPCS: 36415; 71046; 71275; 76705; 80053; 81003; 81025; 82150; 83690; 83735; 84100; 85025; 85610; 93005; 96372; 96374; 96375; 99218; 99283; 99285; A9270; J1650; Q9967; 81001; 85379; 87086

== ENCOUNTER 2018-04-01 23:48 | Inpatient (IN) | payer BC ==
[2018-04-02] MEDS ORDERED: SODIUM CHLORIDE 0.9% 1,000 ML IV ONE ×3 (00:02→07:04)
[2018-04-02 00:27] LABS: BASOPHILS % (AUTO) 0.6 %; EOSINOPHILS # (AUTO) 0.1 10^3/uL (0.0-0.7); EOSINOPHILS % (AUTO) 0.9 %; HGB - HEMOGLOBIN 7.1 g/dL (12.0-16.0); LYMPHOCYTES # (AUTO) 2.6 10^3/uL (1.5-3.5); LYMPHOCYTES % (AUTO) 38.1 %; MEAN CORPUSCULAR HEMOGLOBIN 24.8 pg (27.0-31.0); MEAN CORPUSCULAR HGB CONC 32.2 g/dL (32.0-36.0); MEAN CORPUSCULAR VOLUME 77.1 fL (81.0-99.0); MEAN PLATELET VOLUME 7.6 fL (7.9-10.8); MONOCYTES # (AUTO) 0.5 10^3/uL (0.0-1.0); MONOCYTES % (AUTO) 7.1 %; NEUTROPHILS # (AUTO) 3.7 10^3/uL (1.5-6.6); NEUTROPHILS % (AUTO) 53.3 %; PLT - PLATELET COUNT 316 10^3/uL (130-450); RED BLOOD COUNT 2.84 10^6/uL (4.20-5.40); RED CELL DISTRIBUTION WIDTH 15.6 % (12.0-15.0); WHITE BLOOD COUNT 6.9 x10^3/uL (4.8-10.8)
[2018-04-02 00:31] LABS: INR 1.6 (0.8-1.2); PT - PROTHROMBIN TIME 17.8 secs (9.9-12.6)
[2018-04-02 00:37] LABS: ALBUMIN 3.7 g/dL (3.2-5.5); ALBUMIN/GLOBULIN RATIO 1.3 (1.0-2.2); BILIRUBIN,TOTAL 0.3 mg/dL (0.2-1.0); CALCIUM 8.6 mg/dL (8.5-10.3); CREATININE 0.7 mg/dL (0.4-1.0); TOTAL PROTEIN 6.6 g/dL (6.7-8.2)
[2018-04-02 00:48] LABS: GLUCOSE, URINE (UA) 250 mg/dL (NEGATIVE); KETONES,URINE (UA) 40 mg/dL (NEGATIVE); OCCULT BLOOD,URINE LARGE (NEGATIVE)
[2018-04-02 00:57] LABS: CLARITY,URINE CLOUDY (CLEAR)
[2018-04-02 00:58] LABS: BILIRUBIN,URINE COLOR INTERFERENCE (NEGATIVE)
[2018-04-02 01:09] LABS: RBC,URINE TNTC /HPF (0-5)
[2018-04-02 01:10] LABS: BACTERIA,URINE Few /HPF (None Seen); SQUAMOUS EPITHELIAL CELL,UR FEW Squamous (<= Few)
--- NOTE | 2018-04-02 01:20 | ED Physician Documentation ---
History of Present Illness - Stated complaint Stated Complaint: FEMALE - Chief complaint Chief Complaint: Neuro - History of Present Illness Timing: Today - Additonal information Additional information: 33-year-old female presents the emergency department for evaluation of syncope and vaginal bleeding. The patient was recently diagnosed with a pulmonary embolism 3 months ago and was started on Xarelto. On March 27 the patient started a normal period and has had significant bleeding. This evening while on the commode and bearing down the patient had a syncopal episode. The patient reports feeling lightheaded and dizzy. The patient reports having a heavy period and requiring her tampon to be changed multiple times. No relieving factors. Symptoms are described as severe. No other associated symptoms. The patient denies chest pain or palpitations before or after the syncopal episode. No trauma associated with the syncope Review of Systems Constitutional: denies: Fever, Fatigue Eyes: denies: Discharge Ears: denies: Ear pain Nose: denies: Congestion Throat: denies: Sore throat Cardiac: denies: Chest pain / pressure, Palpitations Respiratory: denies: Dyspnea, Cough GI: denies: Abdominal Pain : reports: Vaginal bleeding Skin: denies: Rash Musculoskeletal: denies: Neck pain Neurologic: reports: Generalized weakness, Syncope. denies: Head injury Immunocompromised: denies: Chemotherapy PD PAST MEDICAL HISTORY - Past Medical History Past Medical History: Yes Cardiovascular: Pulmonary embolism Respiratory: None Endocrine/Autoimmune: None GI: None [employer]OR: Ovarian cysts : None HEENT: None Psych: Depression Musculoskeletal: None Derm: None - Past Surgical History Past Surgical History: Yes HEENT: Tonsil/Adenoidectomy - Present Medications Home Medications: Ambulatory Orders Medication Instructions Recorded Confirmed Sertraline HCl [Zoloft] 100 mg PO DAILY 01/13/15 01/14/18 Rivaroxaban [Xarelto] 15 mg PO Q12H #42 tablet 01/14/18 Rivaroxaban [Xarelto] 20 mg PO DAILY #90 tablet 01/14/18 guaiFENesin [Mucinex] 600 mg PO BID PRN #20 tablet 01/14/18 oxyCODONE [Roxicodone] 5 mg PO Q4HR PRN #42 tablet 01/14/18 - Allergies Allergies/Adverse Reactions: Allergies Allergy/AdvReac Type Severity Reaction Status Date / Time No Known Drug Allergies Allergy Verified 04/02/18 00:01 - Social History Does the pt smoke?: No Smoking Status: Never smoker Does the pt drink ETOH?: No Does the pt have substance abuse?: No - Immunizations Immunizations are current?: No - POLST Patient has POLST: No POLST Status: Full Code PD ED PE NORMAL - General General: Alert and oriented X 3, No acute distress - HEENT HEENT: Atraumatic, PERRL, EOMI, Ears normal - Neck Neck: Supple, no meningeal sign - Respiratory Respiratory: No respiratory distress - Abdomen Abdomen: Normal bowel sounds, Non tender - Extremities Extremities: No deformity, No edema - Neuro Neuro: Alert and oriented X 3, nerve specialist 2-12 intact, No motor deficit, Normal speech - Psych Psych: Normal mood PD ED PE EXPANDED - Cardiac Cardiac: Tachy, Regular Rhythm - Derm Derm: Pale Results - Vitals Vitals: Vital Signs - 24 hr 04/01/18 04/02/18 04/02/18 23:58 00:38 00:39 Temperature 36.6 C Heart Rate 105 H 158 H 80 Respiratory 16 16 13 Rate Blood Pressure 116/72 O2 Saturation 100 97 100 04/02/18 04/02/18 04/02/18 01:07 01:57 02:10 Temperature 36.9 C 36.9 C Heart Rate 90 97 80 Respiratory 15 15 13 Rate Blood Pressure 112/74 119/72 112/70 O2 Saturation 100 100 04/02/18 02:16 Temperature 36.1 C L Heart Rate 92 Respiratory 12 Rate Blood Pressure 112/75 O2 Saturation Oxygen O2 Source Room air - EKG (time done) 00:23 Rate: Rate (enter#) Rhythm: NSR Intervals: Normal ID QRS: Normal Ischemia: Normal ST segments Other comments: Other comments (Normal sinus rhythm without acute ischemic changes) - Labs Labs: Laboratory Tests 04/02/18 04/02/18 04/02/18 00:13 00:13 00:13 WBC 6.9 RBC 2.84 L Hgb 7.1 L Hct 21.9 L MCV 77.1 L MCH 24.8 L MCHC 32.2 RDW 15.6 H Plt Count 316 MPV 7.6 L Neut # (Auto) 3.7 Lymph # (Auto) 2.6 [place] # (Auto) 0.5 Eos # (Auto) 0.1 Baso # (Auto) 0.0 Absolute Nucleated RBC 0.00 Nucleated RBC % 0.0 PT 17.8 H INR 1.6 H APTT 29.1 Sodium Potassium Chloride Carbon Dioxide Anion Gap BUN Creatinine Estimated GFR (MDRD) Glucose Calcium Total Bilirubin AST ALT Alkaline Phosphatase Total Protein Albumin Globulin Albumin/Globulin Ratio Lipase HCG, Quant Urine Color Urine Clarity Urine pH Ur Specific [place] Urine Protein Urine Glucose (UA) Urine Ketones Urine Occult Blood Urine Nitrite Urine Bilirubin Urine Urobilinogen Ur Leukocyte Esterase Urine RBC Urine WBC Ur Squamous Epith Cells Urine Bacteria Ur Microscopic Review Urine Culture Comments Urine HCG, Qual Blood Type AB POSITIVE Blood Type Recheck Antibody Screen NEGATIVE Crossmatch IS Only 04/02/18 04/02/18 04/02/18 00:13 00:13 00:13 WBC RBC Hgb Hct MCV MCH MCHC RDW Plt Count MPV Neut # (Auto) Lymph # (Auto) [place] # (Auto) Eos # (Auto) Baso # (Auto) Absolute Nucleated RBC Nucleated RBC % PT INR APTT Sodium 134 L Potassium 3.5 Chloride 103 Carbon Dioxide 26 Anion Gap 5.0 L BUN 11 Creatinine 0.7 Estimated GFR (MDRD) 97 Glucose 121 H Calcium 8.6 Total Bilirubin 0.3 AST 19 ALT 18 Alkaline Phosphatase 47 Total Protein 6.6 L Albumin 3.7 Globulin 2.9 Albumin/Globulin Ratio 1.3 Lipase 34 HCG, Quant < 0.60 Urine Color Urine Clarity Urine pH Ur Specific [place] Urine Protein Urine Glucose (UA) Urine Ketones Urine Occult Blood Urine Nitrite Urine Bilirubin Urine Urobilinogen Ur Leukocyte Esterase Urine RBC Urine WBC Ur Squamous Epith Cells Urine Bacteria Ur Microscopic Review Urine Culture Comments Urine HCG, Qual Blood Type Cancelled Blood Type Recheck Antibody Screen Cancelled Crossmatch IS Only See Detail 04/02/18 04/02/18 00:30 01:20 WBC RBC Hgb Hct MCV MCH MCHC RDW Plt Count MPV Neut # (Auto) Lymph # (Auto) [place] # (Auto) Eos # (Auto) Baso # (Auto) Absolute Nucleated RBC Nucleated RBC % PT INR APTT Sodium Potassium Chloride Carbon Dioxide Anion Gap BUN Creatinine Estimated GFR (MDRD) Glucose Calcium Total Bilirubin AST ALT Alkaline Phosphatase Total Protein Albumin Globulin Albumin/Globulin Ratio Lipase HCG, Quant Urine Color RED/BLOODY Urine Clarity CLOUDY Urine pH 7.0 Ur Specific [place] 1.020 Urine Protein Urine Glucose (UA) 250 H Urine Ketones 40 H Urine Occult Blood LARGE H Urine Nitrite Urine Bilirubin COLOR INTERFERENCE Urine Urobilinogen Ur Leukocyte Esterase Urine RBC TNTC H Urine WBC 6-10 H Ur Squamous Epith Cells FEW Squamous Urine Bacteria Few Ur Microscopic Review INDICATED Urine Culture Comments INDICATED Urine HCG, Qual TNP Blood Type Blood Type Recheck AB POSITIVE Antibody Screen Crossmatch IS Only - Rads (name of study) US Radiology: Final report received, See rad report PD MEDICAL DECISION MAKING - ED course Complexity details: other (The case is discussed with the on-call THEATRICAL RIGGER Dr. Sanders agrees with the plan for transfusion and a pelvic ultrasound and agrees to consult on the patient. The case is discussed with the hospitalist Dr. Erickson who accepts the patient onto her service.Findings and plan were discussed the patient who understands and agrees to the plan. The plan will be to stop the patient's Xarelto, to transfuse the patient 2 units and the remainder that hospital for further workup and management.) - Sepsis Event Vital Signs: Vital Signs - 24 hr 04/01/18 04/02/18 04/02/18 23:58 00:38 00:39 Temperature 36.6 C Heart Rate 105 H 158 H 80 Respiratory 16 16 13 Rate Blood Pressure 116/72 O2 Saturation 100 97 100 04/02/18 04/02/18 04/02/18 01:07 01:57 02:10 Temperature 36.9 C 36.9 C Heart Rate 90 97 80 Respiratory 15 15 13 Rate Blood Pressure 112/74 119/72 112/70 O2 Saturation 100 100 04/02/18 02:16 Temperature 36.1 C L Heart Rate 92 Respiratory 12 Rate Blood Pressure 112/75 O2 Saturation Oxygen O2 Source Room air Departure - Departure Disposition: 66 [facility] DC/Xfer Clinical Impression: Acute anemia, Vaginal bleeding Syncope Qualifiers: Syncope type: unspecified Qualified Code(s): R55 - Syncope and collapse
[2018-04-02] MEDS ORDERED: SODIUM CHLORIDE FLUSH 0.9% 10 ML SYRINGE IVP PRN (02:17)
--- NOTE | 2018-04-02 02:19 | Ultrasound Report ---
Procedure Date: 04/02/2018 Accession Number: [id number] / [id number] Procedure: US - Pelvic Complete CPT Code: FULL RESULT: EXAM: PELVIC ULTRASOUND EXAM DATE: 04/02/2018 01:09 AM. CLINICAL HISTORY: Vaginal bleeding. COMPARISON: Pelvic w/transvaginal 07/24/2017 images only. TECHNIQUE: Real-time transabdominal pelvic scan performed to identify the uterus and adnexa and as an overview of other pelvic structures, with static image documentation. FINDINGS: Uterus: 8 x 4 x 6 cm, volume 96 cc. Anteverted position. Normal overall size and echotexture. Masses: None. Endometrium: Thin lining but distended up to 14 mm with heterogeneous fluid, likely blood products given history. No vascular mass is seen Cervix: Unremarkable. Right Ovary: Volume 11 cc. Normal echotexture and blood flow. Left Ovary: Volume 5 cc. Normal echotexture and blood flow. Free Fluid: None. Other: None. IMPRESSION: Blood products within the endometrial canal without definite myometrial or endometrial mass seen on this transabdominal study. Clinical follow-up suggested. [facility]
[2018-04-02] MEDS ORDERED: ACETAMINOPHEN 325 MG TABLET PO PRN (02:22)
[2018-04-02] MEDS ORDERED: HYDROcod/ACETAM 5/325 MG TABLET PO PRN (02:22)
[2018-04-02] MEDS ORDERED: PROCHLORPERAZINE 10 MG/2 ML VIAL IVP PRN (02:22)
[2018-04-02] MEDS: DEXTROSE 5%-0.9% NACL 1,000 ML IV SCH ×3 (03:37→23:03)
[2018-04-02 06:13] LABS: BASOPHILS % (AUTO) 0.6 %; EOSINOPHILS % (AUTO) 0.3 %; HGB - HEMOGLOBIN 7.3 g/dL (12.0-16.0); LYMPHOCYTES # (AUTO) 1.8 10^3/uL (1.5-3.5); LYMPHOCYTES % (AUTO) 24.5 %; MEAN CORPUSCULAR HEMOGLOBIN 26.2 pg (27.0-31.0); MEAN CORPUSCULAR HGB CONC 32.7 g/dL (32.0-36.0); MEAN CORPUSCULAR VOLUME 80.1 fL (81.0-99.0); MEAN PLATELET VOLUME 7.5 fL (7.9-10.8); MONOCYTES # (AUTO) 0.4 10^3/uL (0.0-1.0); NEUTROPHILS # (AUTO) 5.2 10^3/uL (1.5-6.6); NEUTROPHILS % (AUTO) 69.6 %; PLT - PLATELET COUNT 243 10^3/uL (130-450); RED BLOOD COUNT 2.79 10^6/uL (4.20-5.40); RED CELL DISTRIBUTION WIDTH 15.9 % (12.0-15.0); WHITE BLOOD COUNT 7.5 x10^3/uL (4.8-10.8)
[2018-04-02 06:31] LABS: CREATININE 0.6 mg/dL (0.4-1.0); MAGNESIUM 1.8 mg/dL (1.7-2.8); PHOSPHORUS 2.8 mg/dL (2.5-4.6)
[2018-04-02] MEDS: SODIUM CHLORIDE FLUSH 0.9% 10 ML SYRINGE IVP SCH ×3 (07:37→20:44)
--- NOTE | 2018-04-02 07:37 | HISTORY & PHYSICAL EXAMINATION ---
DATE OF SERVICE: 04/02/2018 Physician: Yaneth Erickson MD HISTORY OF PRESENT ILLNESS: This is a 33-year-old white female with history of depression on Zoloft and a history of ovarian cyst, for which she was on control pills. She apparently developed bilateral pulmonary emboli that were felt to be from the control pills in December of this year. She required a stay under observation for control of pleuritic chest pain and initiation of Xarelto. Her control pill was discontinued. Since that time, she has had two menstrual periods. The one a month ago lasted eight days and was heavy. She did see her primary care provider within these last three months and states that a hemoglobin was done and was "borderline anemic." She was started on iron tablets, which she has only taken for the last two days. In this month, she started her period 03/27/2018, which has been very heavy. This was especially so in the last 2-3 days where she has required changing her tampon approximately 40 times a day and it is very saturated. Yesterday, she felt lightheaded and had tunnel vision briefly and knew to sit down and lie down with this. Last night while sitting on the toilet to change her tampon, she also felt dizzy and this quickly became a syncopal episode. She fell forward and hit her left forehead against a wall and then slumped to the ground forward. The heard her fall and came to the bathroom. When she did not answer a knock, he found her on the floor, already awakening and crying. She was able to be assisted upright and sat down while the got ready to take her to the emergency room, which he did. In the emergency room, she states that she was lightheaded again when being upright and going to a bedside commode. There have been no further episodes of syncope. She has a history of syncope when she "sees blood and guts." That had happened approximately four times in her life. PAST MEDICAL HISTORY 1. Depression, on Zoloft. 2. Ovarian cysts. 3. Pulmonary embolism diagnosed in December 2017, bilateral, started on Xarelto and control pills were stopped. 4. Anemia with recent prescription of oral iron replacement. ALLERGIES: NONE. MEDICATIONS 1. Zoloft daily. 2. Iron, unknown dose daily. FAMILY HISTORY: No inherited diseases. SOCIAL HISTORY: The patient is a nonsmoker who never smoked, drinks no alcohol , uses no illicit drugs. REVIEW OF SYSTEMS: A comprehensive review of systems was performed and the pertinent positives are in the HPI, the rest are negative. PHYSICAL EXAMINATION GENERAL: Pale-appearing white female, supine. She is in no distress. VITAL SIGNS: Blood pressure 103/56, pulse of 80 in sinus rhythm, afebrile, room air saturation 100%. When she latia to use the bedside commode, heart rate latia to 150 in the ER. HEENT: Shows pallor of the skin and oral mucosa. She has moist oral mucosa. NECK: Without JVD or carotid bruits. LUNGS: Clear. HEART: Sounds normal. ABDOMEN: Soft, nontender. No organomegaly. EXTREMITIES: Without clubbing, cyanosis or edema. No ecchymoses. NEUROLOGIC: Intact. LABORATORY DATA: Sodium 134, otherwise normal electrolytes. HCG negative. INR 1.6, but this is not reliable with the patient on Xarelto. White blood count 6.9, hemoglobin 7.1 with an MCV of 77, platelet count normal at 316. Urinalysis: Large blood, high ketones, few bacteria and a culture was indicated. EKG: Normal sinus rhythm and within normal limits. IMAGING: No chest x-ray was done. No head CT or skull films were done. A pelvic ultrasound showed blood products in the endometrial canal without definite myometrial or endometrial mass. IMPRESSION/DIAGNOSES 1. Syncope. 2. Uterine hemorrhage. 3. Anemia associated with acute blood loss. 4. Volume depletion due to hemorrhage. 5. History of pulmonary embolism from control pills. 6. Depression. PLAN 1. Admit the patient to the ICU given her hemorrhage on anticoagulants and watch carefully for worsening of the hemorrhage. 2. Stop Xarelto. Do not initiate a Xarelto antagonist as it has a prothrombotic risk, and in this patient with pulmonary emboli, she may develop recurrence. 3. Switch from tampon to pads to assess her blood loss and obtain an DISTRICT ADMINISTRATIVE ASSISTANT consult for further recommendations. 4. Begin transfusion of the patient, 3 units will be initiated. Follow her CBC every 12 hours for further need for transfusion. 5. Order bedrest since an upright posture is associated with symptoms of near syncope and full syncope. 6. Obtain a head CT and, if needed, skull films to rule out fracture, but currently there is no sign of even an ecchymosis on visual inspection. 7. There will need to be determination of when to restart, or if she should be restarted, on an anticoagulant. I reviewed the summaries from her December hospitalization , which indicated she might need longer than a 6-month course of anticoagulation because of the bilateral and extensive nature of the pulmonary emboli. A chest CT could be performed to help in determination of this decision. 8. Continue with her antidepressants. DEEP VENOUS THROMBOSIS PROPHYLAXIS: Compression stockings and SCDs. CODE STATUS: FULL CODE. ATTESTATION: The patient is expected to be discharged or transferred to another facility and 96 hours: Yes. TD: 04/02/2018 07:18 JAYJAY
[2018-04-02] MEDS ORDERED: NON FORMULARY MED (Sertraline Hcl [Zoloft] 100 MG) PO SCH (09:00)
[2018-04-02] MEDS: FERROUS GLUCONATE 324 MG TABLET PO SCH ×2 (09:03→20:43)
[2018-04-02] MEDS: SERTRALINE 50 MG TABLET PO SCH (09:03)
[2018-04-02] MEDS: FAMOTIDINE 20 MG TABLET PO SCH (09:03)
[2018-04-02 14:42] LABS: BASOPHILS % (AUTO) 0.5 %; EOSINOPHILS # (AUTO) 0.1 10^3/uL (0.0-0.7); EOSINOPHILS % (AUTO) 0.8 %; HGB - HEMOGLOBIN 9.4 g/dL (12.0-16.0); LYMPHOCYTES # (AUTO) 2.3 10^3/uL (1.5-3.5); LYMPHOCYTES % (AUTO) 31.5 %; MEAN CORPUSCULAR HEMOGLOBIN 28.1 pg (27.0-31.0); MEAN CORPUSCULAR HGB CONC 33.3 g/dL (32.0-36.0); MEAN CORPUSCULAR VOLUME 84.3 fL (81.0-99.0); MEAN PLATELET VOLUME 7.7 fL (7.9-10.8); MONOCYTES # (AUTO) 0.5 10^3/uL (0.0-1.0); MONOCYTES % (AUTO) 7.2 %; NEUTROPHILS # (AUTO) 4.3 10^3/uL (1.5-6.6); PLT - PLATELET COUNT 225 10^3/uL (130-450); RED BLOOD COUNT 3.34 10^6/uL (4.20-5.40); RED CELL DISTRIBUTION WIDTH 16.6 % (12.0-15.0); WHITE BLOOD COUNT 7.2 x10^3/uL (4.8-10.8)
--- NOTE | 2018-04-02 15:07 | CONSULTATION NOTE ---
DATE OF SERVICE: 04/02/2018 Physician: Ken De Santiago MD PATIENT IDENTIFICATION: Patient is a 33-year-old female whose last menstrual period was 03/26/2018. CHIEF COMPLAINT: Vaginal bleeding. HISTORY OF PRESENT ILLNESS: Patient states that she developed a period which started on roughly 03/26/2018. It became progressively worse on 03/29/2018. Monday, Monday she was needing to change a pad every 20-30 minutes. At home, she became lightheaded, passed out, as well as developed palpitations. She presented to the emergency room, at which time her hemoglobin was noted to be 7 grams. She had been taking Xarelto for DVT with pulmonary embolism, which she started back in December. She was placed on this because she devloped this when placed on control pills. She denies any prior history of any embolisms or clotting disorders. She has used a Mirena prior to that for contraception. She was changed to control pills because of recurrent ovarian cysts by her provider. She is concerned about recurrence, and is concerned about having future children because of her increased risk of DVT with PE. She gives no family history of clotting coagulopathies; however, she did have a half uncle who from a myocardial infarction in his late 30s. He had hypercholesterolemia. PAST MEDICAL HISTORY: Deep venous thrombosis with pulmonary embolism. She has also had recurrent ovarian cysts. PAST SURGICAL HISTORY: Tonsillectomy and adenoidectomy, as well as a LEEP procedure. ALLERGIES: NONE KNOWN. CURRENT MEDICATIONS 1. Xarelto 20 mg daily, which has been placed on hold since she presented to the ED. 2. She is also on Zoloft 100 mg daily. HABITS: The patient denies use of alcohol, tobacco, street or addictive drugs, or tetrahydrocannabinol. SOCIAL HISTORY: The patient is and lives with her spouse, child, as well as a stepchild. She works as an information management officer. FAMILY HISTORY: Positive for hypercholesterolemia in a mother, a maternal grandfather, as well as a half uncle. She denies any history of any GATHERING WORKER cancers such as endometrial, ovarian, or endometrial cancer. REVIEW OF SYSTEMS: Negative for HEENT, cardiac, pulmonary, GI, musculoskeletal , or neurologic. PHYSICAL EXAMINATION GENERAL: Well-developed, well-nourished female. She is currently lying in bed. She appears somewhat pale in her color. She is currently blood transfusing at this time. HEENT: Pupils are equal, round. Extraocular muscles are intact. There is no evidence of any scleral icterus. Mouth is clear. Thyroid is not palpably enlarged. HEART: Regular rate and rhythm without murmurs. LUNGS: Lung walden are clear without rales or wheezes. BACK: No spinal or CVA tenderness noted. ABDOMEN: Soft, nontender without evidence of any organomegaly. EXTREMITIES: There is no calf tenderness. There is negative Homans' sign. STUDIES: Ultrasound is reviewed with the radiologist, and there is a normal uterus without evidence of any fibroids or endometrial polyps. There is clot inside the uterus, which is compatible with her current bleeding state. The patient states her bleeding is decreasing with time. IMPRESSION: patient has a history of a coagulopathy with pulmonary embolism with deep venous thrombosis probably secondary to OCP's which she was taking for ovulation suppression. Recurrent ovarian cysts. Her menorrhagia is secondary to Xarelto. She has been off this for almost 12 hours at this time. She states her bleeding is improving. PLAN: Discussed the patient's various options. These range from just to holding her Xarelto until her bleeding stops and seeing how she does through the next 3 cycles. She plans to use her Xarelto for a total of 6 months, and then discontinue it. The alternative of putting a Mirena IUD back in with the knowledge that she will most likely have recurrent ovarian cysts have also been reviewed. an other option would be Nexplanon or DMPA. Performing an endometrial ablation with tubal ligation would be an alternative; however, this would preclude any further children in the future. D and C would not be recommended at this time, as her bleeding appears to be resolving, and this could potentially aggravate more bleeding. At this point, we will re-discuss the options with the patient tomorrow morning. If she so desires, could potentially proceed with surgical options on Monday ; however, at this point, I am not totally convinced that this is the appropriate course of action. TD: 04/02/2018 12:54 JAYJAY
[2018-04-02 19:12] LABS: HGB - HEMOGLOBIN 9.4 g/dL (12.0-16.0)
[2018-04-03 05:50] LABS: BASOPHILS % (AUTO) 0.5 %; EOSINOPHILS # (AUTO) 0.1 10^3/uL (0.0-0.7); EOSINOPHILS % (AUTO) 1.4 %; HGB - HEMOGLOBIN 9.6 g/dL (12.0-16.0); LYMPHOCYTES # (AUTO) 1.8 10^3/uL (1.5-3.5); MEAN CORPUSCULAR HEMOGLOBIN 28.1 pg (27.0-31.0); MEAN CORPUSCULAR HGB CONC 33.2 g/dL (32.0-36.0); MEAN CORPUSCULAR VOLUME 84.5 fL (81.0-99.0); MEAN PLATELET VOLUME 7.6 fL (7.9-10.8); MONOCYTES # (AUTO) 0.4 10^3/uL (0.0-1.0); MONOCYTES % (AUTO) 7.4 %; NEUTROPHILS # (AUTO) 3.3 10^3/uL (1.5-6.6); NEUTROPHILS % (AUTO) 58.7 %; PLT - PLATELET COUNT 219 10^3/uL (130-450); RED BLOOD COUNT 3.41 10^6/uL (4.20-5.40); RED CELL DISTRIBUTION WIDTH 16.9 % (12.0-15.0); WHITE BLOOD COUNT 5.7 x10^3/uL (4.8-10.8)
[2018-04-03 06:00] LABS: CALCIUM 7.5 mg/dL (8.5-10.3); CREATININE 0.6 mg/dL (0.4-1.0); MAGNESIUM 1.9 mg/dL (1.7-2.8); PHOSPHORUS 2.4 mg/dL (2.5-4.6)
[2018-04-03] MEDS ORDERED: POTASSIUM CHLORIDE 20 MEQ TABLET PO ONE (07:24)
[2018-04-03] MEDS ORDERED: NEUTRA-PHOS 250 MG TABLET PO SCH (08:00)
[2018-04-03] MEDS: FAMOTIDINE 20 MG TABLET PO SCH (08:59)
[2018-04-03] MEDS: SERTRALINE 50 MG TABLET PO SCH (08:59)
[2018-04-03] MEDS: FERROUS GLUCONATE 324 MG TABLET PO SCH (08:59)
[2018-04-03] MEDS ORDERED: POLYETHYLENE GLYCOL 3350 17 GM PACKET PO SCH (09:00)
--- NOTE | 2018-04-03 09:20 | Discharge Plan ---
Discharge Plan Disposition: 01 Home, Self Care Condition: Good Diet: Regular Activity Restrictions: No Restrictions Shower Restrictions: No Driving Restrictions: No Weight Bearing: Full Weight Additional Instructions or Follow Up instructions: You presented to our emergency department after you passed out at home. You have been having heavy menstrual periods since you were started on Xarelto for treatment of pulmonary embolism. While you were hospitalized you were transfused 3 units of packed red blood cells and your blood counts improved. Your bleeding has now stopped. I am recommending that you continue to take your xarelto till 04/15/18 to complete 3 months of treatment for your PE. You have already stopped taking the control pills so 3 months of treatment is adequate. Since you will complete treatment before your next period it is ok to continue with xarelto for now. Please follow up with your PCP for additional testing once you have completed treatment. No Smoking: If you smoke, Please STOP! Call for help. Follow-up with: Zakia Eng DO [Primary Care Provider] -
[2018-04-03 09:53] VITALS: BP 121/70
--- NOTE | 2018-04-03 10:43 | DISCHARGE SUMMARY ---
"Discharge Summary Admit Date: 04/02/18 Discharge Date: 04/03/18 Discharging Provider: Sukhdeep Geiger MD Primary Care Provider: Zakia Eng Code Status: Attempt Resuscitation Condition at Discharge: Good Discharge Disposition: 01 Home, Self Care - DIAGNOSES Admission Diagnoses: 1. Syncope 2. Uterine hemorrhage 3. Anemia associated with acute blood loss 4. Volume depletion due to hemorrhage 5. History of pulmonary embolism from control pills 6. Depression Discharge Diagnoses with Status of Each Condition: 1. Anemia due to acute blood loss: Stable 2. Menorrhagia: Stable 3. Syncope: Resolved 4. Volume depletion secondary to hemorrhage: Resolved 5. History of pulmonary emboli: Stable 6. Depression: Stable - HPI History of Present Illness: Patient is a 33-year-old female with past medical history significant for depression on Zoloft and history of ovarian cyst, for which she was on control pills. She developed bilateral pulmonary emboli that were felt to be from the control pills in December of this year. She required to stay under observation for control of pleuritic chest pain and initiation of Xarelto. Her control pills were discontinued at that time. Since that time she has had 2 menstrual periods. She had one a month ago that lasted for 8 days and was heavy. She did see her primary care provider within these last 3 months and states that hemoglobin was done and was borderline anemic. She was started on iron tablets, which she has only taken for the last 2 days. In this month she started her period on 03/27/2018, which has been very heavy. This was especially so in the last 2-3 days where she was requiring changing her tampon approximately 40 times a day and is very saturated. Yesterday, she felt lightheaded and had tunnel vision briefly and new to sit down and lie down with this. Last night while sitting on the toilet to change her tampon she again felt dizzy and this time had a syncopal episode. She fell forward and hit her head against the wall and then slumped to the ground lying forward. The patient 's heard her fall and came to the bathroom. When she did not answer on not, he found her on the floor, already awakening and crying. She was able to be assisted upright and sat down while the got ready to take her to the emergency department which she did. In the emergency room she states she was lightheaded again when being upright and going to a bedside commode. There have been no further episodes of syncope. She has a history of syncope when she sees blood and clots. That had happened approximately 4 times in her life. - CONSULTS | PROCEDURES Consultations: Obstetrics and Gyenecology: Dr. De Santiago - HOSPITAL COURSE Hospital Course: On presentation to the emergency department the patient was tachycardic and appeared pale and continued to be dizzy when she stood up. The patient's hemoglobin on presentation was 7.1. She was having persistent menstrual bleeding. The patient was transfused 3 units of packed RBCs during the hospitalization. The patient's blood pressure remained stable. Patient's tachycardia resolved. Patient had no further dizziness. Patient's hemoglobin improved to 9.6 and remained stable for 24 hours. The patient's Xarelto was initially held when she presented to the emergency department. The patient's bleeding had resolved on the day of discharge. The patient was restarted on her Xarelto. She will be continued on Xarelto to complete 3 months of treatment for pulmonary embolism provoked from control pills. This is the minimum duration of treatment as per the journal of thrombosis and hemostasis for hormone associated PE. She has 12 days remaining for treatment and will have completed 3 months on 04/15/2018. She was advised to continue the Xarelto till 04/15/2018 and then stop as she would have completed treatment for her pulmonary embolism. She was advised to follow-up with her primary care physician for further testing of hypercoagulable states. The patient's menorrhagia should resolve as it was likely due to the use of Xarelto. If the patient does continue to have menorrhagia despite stopping the Xarelto then she will need to follow-up with obstetrics and gynecology. If the patient continues to have symptoms from her ovarian cysts she will also need to follow- up with obstetrics and gynecology. The patient was also advised if she has any further bleeding then she should return to the emergency department. - ALLERGIES Allergies/Adverse Reactions: Allergies Allergy/AdvReac Type Severity Reaction Status Date / Time No Known Drug Allergies Allergy Verified 04/02/18 00:01 - MEDICATIONS Home Medications: Ambulatory Orders Medication Instructions Recorded Confirmed Sertraline HCl [Zoloft] 100 mg PO DAILY 01/13/15 04/02/18 Rivaroxaban [Xarelto] 20 mg PO DAILY #90 tablet 04/03/18 04/02/18 - PHYSICAL EXAM AT DISCHARGE General Appearance: positive: No acute distress, Alert Eyes Bilateral: positive: Normal inspection, PERRL, EOMI, No lid inflammation, Conjunctivae nml, No scleral icterus ENT: positive: ENT inspection nml, Pharynx nml, No signs of dehydration. negative: Purulent nasal drainage, Pharyngeal erythema, Oral lesions Neck: positive: Nml inspection, Thyroid nml, No JVD, Trachea midline, Thyromegaly. negative: Lymphadenopathy (R), Lymphadenopathy (L), Stiff neck, Carotid bruit, Tracheal deviation Respiratory: positive: Chest non-tender, No respiratory distress, Breath sounds nml. negative: Wheezes, Rales, Rhonchi Cardiovascular: positive: Regular rate & rhythm, No murmur, No gallop Peripheral Pulses: positive: 2+ Abdomen: positive: Non-tender, No organomegaly, Nml bowel sounds, No distention. negative: Guarding, Rebound, Hepatomegaly Back: positive: Nml inspection. negative: CVA tenderness (R), CVA tenderness (L ) Skin: positive: Color nml, No rash, Warm. negative: Cyanosis, Diaphoresis, Pallor Extremities: positive: Non-tender, Full ROM, Nml appearance, No pedal edema Neurologic/Psychiatric: positive: Oriented x3, CN's nml (2-12), Motor nml, Sensation nml, Mood/affect nml - LABS Result Diagrams: 04/03/18 05:25 04/03/18 05:25 Other Lab Results: Laboratory Last Values WBC 5.7 x10^3/uL (4.8-10.8) 04/03/18 05:25 RBC 3.41 10^6/uL (4.20-5.40) L 04/03/18 05:25 Hgb 9.6 g/dL (12.0-16.0) L 04/03/18 05:25 Hct 28.8 % (37.0-47.0) L 04/03/18 05:25 MCV 84.5 fL (81.0-99.0) 04/03/18 05:25 MCH 28.1 pg (27.0-31.0) 04/03/18 05:25 MCHC 33.2 g/dL (32.0-36.0) 04/03/18 05:25 RDW 16.9 % (12.0-15.0) H 04/03/18 05:25 Plt Count 219 10^3/uL (130-450) 04/03/18 05:25 MPV 7.6 fL (7.9-10.8) L 04/03/18 05:25 Neut # (Auto) 3.3 10^3/uL (1.5-6.6) 04/03/18 05:25 Lymph # (Auto) 1.8 10^3/uL (1.5-3.5) 04/03/18 05:25 Whitman # (Auto) 0.4 10^3/uL (0.0-1.0) 04/03/18 05:25 Eos # (Auto) 0.1 10^3/uL (0.0-0.7) 04/03/18 05:25 Baso # (Auto) 0.0 10^3/uL (0.0-0.1) 04/03/18 05:25 Absolute Nucleated RBC 0.01 x10^3/uL 04/03/18 05:25 Nucleated RBC % 0.1 /100WBC 04/03/18 05:25 PT 17.8 secs (9.9-12.6) H 04/02/18 00:13 INR 1.6 (0.8-1.2) H 04/02/18 00:13 APTT 29.1 secs (24.9-33.3) 04/02/18 00:13 Sodium 138 mmol/L (135-145) 04/03/18 05:25 Potassium 3.5 mmol/L (3.5-5.0) 04/03/18 05:25 Chloride 112 mmol/L (101-111) H 04/03/18 05:25 Carbon Dioxide 23 mmol/L (21-32) 04/03/18 05:25 Anion Gap 3.0 (6-13) L 04/03/18 05:25 BUN 7 mg/dL (6-20) 04/03/18 05:25 Creatinine 0.6 mg/dL (0.4-1.0) 04/03/18 05:25 Estimated GFR (MDRD) 116 (>89) 04/03/18 05:25 Glucose 109 mg/dL (70-100) H 04/03/18 05:25 Calcium 7.5 mg/dL (8.5-10.3) L 04/03/18 05:25 Phosphorus 2.4 mg/dL (2.5-4.6) L 04/03/18 05:25 Magnesium 1.9 mg/dL (1.7-2.8) 04/03/18 05:25 Total Bilirubin 0.3 mg/dL (0.2-1.0) 04/02/18 00:13 AST 19 IU/L (10-42) 04/02/18 00:13 ALT 18 IU/L (10-60) 04/02/18 00:13 Alkaline Phosphatase 47 IU/L (42-121) 04/02/18 00:13 Total Protein 6.6 g/dL (6.7-8.2) L 04/02/18 00:13 Albumin 2.6 g/dL (3.2-5.5) L 04/03/18 05:25 Globulin 2.9 g/dL (2.1-4.2) 04/02/18 00:13 Albumin/Globulin Ratio 1.3 (1.0-2.2) 04/02/18 00:13 Lipase 34 U/L (22-51) 04/02/18 00:13 HCG, Quant < 0.60 mIU/mL 04/02/18 00:13 Urine Color RED/BLOODY 04/02/18 00:30 Urine Clarity CLOUDY (CLEAR) 04/02/18 00:30 Urine pH 7.0 PH (5.0-7.5) 04/02/18 00:30 Ur Specific [place] 1.020 (1.002-1.030) 04/02/18 00:30 Urine Protein mg/dL (NEGATIVE) 04/02/18 00:30 Urine Glucose (UA) 250 mg/dL (NEGATIVE) H 04/02/18 00:30 Urine Ketones 40 mg/dL (NEGATIVE) H 04/02/18 00:30 Urine Occult Blood LARGE (NEGATIVE) H 04/02/18 00:30 Urine Nitrite (NEGATIVE) 04/02/18 00:30 Urine Bilirubin COLOR INTERFERENCE (NEGATIVE) 04/02/18 00:30 Urine Urobilinogen E.U./dL (NORMAL) 04/02/18 00:30 Ur Leukocyte Esterase (NEGATIVE) 04/02/18 00:30 Urine RBC TNTC /HPF (0-5) H 04/02/18 00:30 Urine WBC 6-10 /HPF (0-5) H 04/02/18 00:30 Ur Squamous Epith Cells FEW Squamous (<= Few) 04/02/18 00:30 Urine Bacteria Few /HPF (None Seen) 04/02/18 00:30 Ur Microscopic Review INDICATED 04/02/18 00:30 Urine Culture Comments INDICATED 04/02/18 00:30 Urine HCG, Qual TNP 04/02/18 00:30 Blood Type AB POSITIVE 04/02/18 00:13 Blood Type Recheck AB POSITIVE 04/02/18 01:20 Antibody Screen NEGATIVE 04/02/18 00:13 Crossmatch IS Only See Detail 04/02/18 00:13 - DIAGNOSTIC IMAGING Diagnostic Imaging Results: Final report reviewed Diagnostic Imaging Results Comments: Pelvic ultrasound Impression: Blood products within the endometrial canal without definite myometrial or endometrial mass seen on this transabdominal study. Clinical follow-up suggested. - FOLLOW UP Follow Up: Patient will continue Xarelto for 12 more days till 04/15/2018 at that point she will have completed 3 months of treatment for provoked PE from control pills. She will follow-up with her primary care physician for further workup for hypercoagulable states. The patient will return to the emergency department if she has any further bleeding. At the time of discharge the patient's bleeding had resolved and her hemoglobin had remained stable after she received 3 units of packed RBCs in the hospital. - TIME SPENT Time Spent in Discharge (Minutes): 40"
== END 2018-04-03 10:05 | disposition home or self-care (01) | DRG 811 ==
LOC: ED 23:48 → ICU 04-02 02:17
PROVIDERS: ADMIT Internal Medicine; ATTEND Internal Medicine
PROC: 30233N1 Transfusion of Nonautologous Red Blood Cells into Peripheral Vein, Percutaneous Approach (ICD-10-PCS; principal; 2018-04-02)
DX: D62 Acute posthemorrhagic anemia (principal); I26.99 Other pulmonary embolism without acute cor pulmonale; D68.32 Hemorrhagic disorder due to extrinsic circulating anticoagulants; N92.0 Excessive and frequent menstruation with regular cycle; R55 Syncope and collapse; E86.1 Hypovolemia; T45.515A Adverse effect of anticoagulants, initial encounter; Y92.002 Bathroom of unspecified non-institutional (private) residence as the place of occurrence of the external cause; T38.4X Poisoning by, adverse effect of and underdosing of oral contraceptives; F32.9 Major depressive disorder, single episode, unspecified; Z87.42 Personal history of other diseases of the female genital tract; Z79.899 Other long term (current) drug therapy; Z82.49 Family history of ischemic heart disease and other diseases of the circulatory system
CPT/HCPCS: 36415; 36430; 76856; 80048; 80053; 81001; 81003; 81025; 82040; 83690; 83735; 84100; 84702; 85014; 85018; 85025; 85610; 85730; 86850; 86900; 86901; 86920; 87086; 87150; 93005; 93306; 96360; 96361; 99285

== ENCOUNTER 2018-06-14 14:59 | Outpatient (CLI) | payer BC | END 2018-06-14 15:00 | disposition home or self-care (01) | LOC: LAB.WCP 14:59 | PROVIDERS: ATTEND Family Medicine | DX: N91.2 Amenorrhea, unspecified (principal) | CPT/HCPCS: 36415; 84702 ==

== ENCOUNTER 2018-06-19 07:08 | Outpatient (CLI) | payer BC | END 2018-06-19 07:09 | disposition home or self-care (01) | LOC: LAB.WCP 07:08 | PROVIDERS: ATTEND Family Medicine | DX: N91.2 Amenorrhea, unspecified (principal) | CPT/HCPCS: 36415; 84702 ==

== ENCOUNTER 2018-10-10 22:00 | Outpatient (CLI) | payer OTHER, BC ==
--- NOTE | 2018-10-10 23:00 | Ultrasound Report ---
Reason: LEG PAIN, RIGHT Procedure Date: 10/10/2018 Accession Number: [id number] / [id number] Procedure: US - Duplex Ext Veins Right CPT Code: FULL RESULT: EXAM: RIGHT LOWER EXTREMITY VENOUS ULTRASOUND EXAM DATE: 10/10/2018 10:42 PM. CLINICAL HISTORY: LEG PAIN, RIGHT. COMPARISON: None. TECHNIQUE: Real-time sonographic vascular imaging was performed by the processing analyst through the lower extremity utilizing both color-flow and Doppler spectral analysis. Multiple student services representative static images were saved for review. FINDINGS: Common Femoral Vein (CFV): Normal. CFV-GSV Junction: Normal. Profunda Femoral Vein (PFV): Normal. Femoral Vein (FV) Prox: Normal. Femoral Vein (FV) Mid: Normal. Femoral Vein (FV) Dist: Normal. Popliteal Vein: Normal. Posterior Tibial Veins: Normal. Peroneal Veins: Normal. IMPRESSION: No evidence for deep venous thrombosis. RADIA
== END 2018-10-10 22:01 | disposition home or self-care (01) ==
LOC: DI 22:00
PROVIDERS: ATTEND Family Medicine
DX: M79.604 Pain in right leg (principal)

== ENCOUNTER 2020-05-08 15:21 | Outpatient (CLI) | payer BC ==
[2020-05-08 15:53] LABS: BASOPHILS % (AUTO) 0.4 %; EOSINOPHILS # (AUTO) 0.1 10^3/uL (0.0-0.7); EOSINOPHILS % (AUTO) 0.7 %; HGB - HEMOGLOBIN 11.7 g/dL (12.0-16.0); LYMPHOCYTES # (AUTO) 1.7 10^3/uL (1.5-3.5); LYMPHOCYTES % (AUTO) 24.6 %; MEAN CORPUSCULAR HEMOGLOBIN 27.7 pg (27.0-31.0); MEAN CORPUSCULAR HGB CONC 32.6 g/dL (32.0-36.0); MEAN CORPUSCULAR VOLUME 84.9 fL (81.0-99.0); MEAN PLATELET VOLUME 9.8 fL (7.9-10.8); MONOCYTES # (AUTO) 0.6 10^3/uL (0.0-1.0); NEUTROPHILS # (AUTO) 4.4 10^3/uL (1.5-6.6); PLT - PLATELET COUNT 222 10^3/uL (130-450); RED BLOOD COUNT 4.23 10^6/uL (4.20-5.40); WHITE BLOOD COUNT 6.8 x10^3/uL (4.8-10.8)
[2020-05-09 08:03] LABS: HIV AG/AB 4TH GEN NON-REACTIVE (NON-REACTIVE)
[2020-05-09 12:43] LABS: HEPATITIS C ANTIBODY NON-REACTIVE (NON-REACTIVE)
[2020-05-09 13:28] LABS: HEPATITIS B SURFACE ANTIGEN NON-REACTIVE (NON-REACTIVE)
== END 2020-05-08 15:22 | disposition home or self-care (01) ==
LOC: LAB 15:21
PROVIDERS: ATTEND Obstetrics & Gynecology
DX: Z36.89 Encounter for other specified antenatal screening (principal); Z86.711 Personal history of pulmonary embolism
CPT/HCPCS: 36415; 81241; 81599; 85025; 85613; 85730; 86146; 86147; 86592; 86762; 86803; 86850; 86900; 86901; 87340; 87389

== ENCOUNTER 2020-09-17 11:31 | Outpatient (CLI) | payer BC ==
[2020-09-17 12:51] LABS: BASOPHILS % (AUTO) 0.3 %; EOSINOPHILS % (AUTO) 0.6 %; LYMPHOCYTES # (AUTO) 1.2 10^3/uL (1.5-3.5); MEAN CORPUSCULAR HGB CONC 32.4 g/dL (32.0-36.0); MEAN CORPUSCULAR VOLUME 89.7 fL (81.0-99.0); MEAN PLATELET VOLUME 9.6 fL (7.9-10.8); MONOCYTES # (AUTO) 0.5 10^3/uL (0.0-1.0); MONOCYTES % (AUTO) 6.9 %; NEUTROPHILS % (AUTO) 73.5 %; PLT - PLATELET COUNT 215 10^3/uL (130-450); RED BLOOD COUNT 3.79 10^6/uL (4.20-5.40); RED CELL DISTRIBUTION WIDTH 13.4 % (12.0-15.0); WHITE BLOOD COUNT 6.8 x10^3/uL (4.8-10.8)
== END 2020-09-17 11:32 | disposition home or self-care (01) ==
LOC: LAB 11:31
PROVIDERS: ATTEND Obstetrics & Gynecology
DX: Z36.89 Encounter for other specified antenatal screening (principal)
CPT/HCPCS: 36415; 82950; 85025

== ENCOUNTER 2020-10-08 11:56 | Outpatient (CLI) | payer BC ==
--- NOTE | 2020-10-09 10:57 | Ultrasound Report ---
PROCEDURE: OB F/U or Repeat INDICATIONS: SUPERVISION HIGH RISK OUTSIDE/PRIOR DATING DATA: Last menstrual period (LMP): 03/10/2020. LMP-based estimated date of delivery (MARY): 12/15/2020. First dating scan (date and location): 05/01/2020. Estimated date of delivery (MARY) from first dating scan: 12/12/2020. TECHNIQUE: Real-time scanning was performed of the fetus, with image documentation and biometric measurements. Endovaginal scanning: Not performed COMPARISON: 05/01/2020, 06/09/2020, 07/02/2020, 08/06/2020, 08/11/2020. FINDINGS: General: A single living intrauterine gestation is present. Presentation: Vertex Placenta: Placental position is posterior, without previa. Amniotic fluid index: 13.4 cm, within normal limits. Largest pocket measures 5.4 cm heart rate: 149 beats per minute. Maternal cervical canal: 5.3 cm long; normal length is 2.5 cm or more. biometrics: Biparietal diameter: 7.9 cm, 30 weeks 5 days Head circumference: 28.3 cm, 31 weeks 0 days Abdominal circumference: 28.5 cm, 32 weeks 4 days Femur length: 5.6 cm, 29 weeks 3 days Estimated gestational age from initial scan: not applicable. Composite gestational age from present scan: 30 weeks 6 days Estimated weight and percentile: 1737 g Measurement variability in biometric dating: +/- 10 days from 12-20 weeks gestation, +/- 2 weeks from 20-30 weeks gestation, +/- 3 weeks at 30 weeks gestation or more. Other: Not applicable. IMPRESSION: Single living intrauterine fetus in vertex presentation demonstrating expected interval growth Reviewed by: Dewayne Chaves MD on 10/09/2020 10:56 AM PST Approved by: Dewayne Chaves MD on 10/09/2020 10:56 AM PST Station ID: [id number]
== END 2020-10-08 11:57 | disposition home or self-care (01) ==
LOC: DI 11:56
PROVIDERS: ATTEND Obstetrics & Gynecology
DX: O09.90 Supervision of high risk pregnancy, unspecified, unspecified trimester (principal)

== ENCOUNTER 2020-11-02 13:53 | Outpatient (CLI) | payer BC ==
[2020-11-02 14:09] VITALS: BP 127/70
--- NOTE | 2020-11-03 09:57 | PROCEDURE REPORT ---
- HPI Diagnosis/Indication for NST: Other (History if pumonary embolus; on anticoagulation (high risk medication)) Current EDU 12/15/20 Gestation 33 Weeks and 6 Days 3 Para 1 Vital Signs Temperature 98.2 F 11/02/20 14:07 Heart Rate 94 11/02/20 14:07 Respiratory Rate 20 11/02/20 14:07 Blood Pressure 127/70 11/02/20 14:07 O2 Saturation 99 11/02/20 14:07 Temperature 98.2 F 11/02/20 14:07 Heart Rate 94 11/02/20 14:07 Respiratory Rate 20 11/02/20 14:07 Blood Pressure 127/70 11/02/20 14:07 O2 Saturation 99 11/02/20 14:07 - NST Procedure NST Procedure Start Date 11/02/20 Start Time 14:00 Stop Time 14:29 Vibroacoustic Stimulation Used No Patient States Movement Yes - Results and Plan Findings/Impression: Baseline: BPM 130 Variability: Moderate Accelerations: Present Decelerations: Absent Trends in FHR over time: no changes [place] contractions in 10 minutes: 2-3, not feeling her contractions Impression: reactive Category 1 NST
== END 2020-11-02 14:30 | disposition home or self-care (01) ==
LOC: WFO 13:53 → FBP 13:59 → WFO 14:30
PROVIDERS: ATTEND Obstetrics & Gynecology
DX: O09.893 Supervision of other high risk pregnancies, third trimester (principal); Z86.711 Personal history of pulmonary embolism; Z79.01 Long term (current) use of anticoagulants; Z3A.33 33 weeks gestation of pregnancy
CPT/HCPCS: 59025

== ENCOUNTER 2020-11-05 11:56 | Outpatient (CLI) | payer BC ==
--- NOTE | 2020-11-05 13:57 | Ultrasound Report ---
PROCEDURE: OB Biophysical Profile INDICATIONS: SUPERVISION OF HIGH RISK OUTSIDE/PRIOR DATING DATA: Last menstrual period (LMP): 03/10/2020. LMP-based estimated date of delivery (MARY): 12/15/2020. First dating scan (date and location): 05/01/2020. Estimated date of delivery (MARY) from first dating scan: 12/15/2020 (provider stated). TECHNIQUE: Real-time scanning was performed of the fetus, with image documentation and biometric lopez surements. Biophysical profile was also obtained. Endovaginal scanning: Not performed COMPARISON: 10/08/2020 FINDINGS: General: A single living intrauterine gestation is present. Estimated gestational age is approximat sancho 34 weeks and 2 days Presentation: Vertex Placenta: Placental position is posterior fundal, without previa. Amniotic fluid index: 14.9 cm, 55th percentile for gestational age. Largest vertical pocket measure d 4.9 cm heart rate: 144 beats per minute. Maternal cervical canal: 3.7 cm long; normal length is 2.5 cm or more. Biophysical profile: Tone: 2 points. Movement: 2 points. Respiration: 2 points. Largest pocket of fluid: 2 points. Umbilical artery Doppler: Normal S/D ratios and cord Doppler waveforms. IMPRESSION: 1. Single living intrauterine gestation with estimated gestational age of approximately 34 weeks and 2 days. Expected interval growth has occurred. 2. Normal biophysical profile score of 8 out of 8 with normal S/D ratios and cord Doppler waveforms Reviewed by: Jonas Henderson MD on 11/05/2020 1:56 PM PST Approved by: Jonas Henderson MD on 11/05/2020 1:56 PM PST Station ID: [id number]
== END 2020-11-05 11:57 | disposition home or self-care (01) ==
LOC: DI 11:56
PROVIDERS: ATTEND Obstetrics & Gynecology
DX: O09.93 Supervision of high risk pregnancy, unspecified, third trimester (principal); Z3A.34 34 weeks gestation of pregnancy

== ENCOUNTER 2020-11-05 12:35 | Outpatient (CLI) | payer BC ==
[2020-11-05 12:52] VITALS: BP 126/80
--- NOTE | 2020-11-05 16:32 | PROCEDURE REPORT ---
- HPI Diagnosis/Indication for NST: Other (High risk medication use (anticoagulation)) Current EDU 12/15/20 Gestation 34 Weeks and 2 Days 2 Para 1 Vital Signs Temperature 98.2 F 11/05/20 12:46 Heart Rate 98 11/05/20 12:46 Respiratory Rate 20 11/05/20 12:46 Blood Pressure 126/80 11/05/20 12:46 O2 Saturation 100 11/05/20 12:46 Temperature 98.2 F 11/05/20 12:46 Heart Rate 98 11/05/20 12:46 Respiratory Rate 20 11/05/20 12:46 Blood Pressure 126/80 11/05/20 12:46 O2 Saturation 100 11/05/20 12:46 - NST Procedure NST Procedure Start Date 11/05/20 Start Time 12:52 Stop Time 13:20 Vibroacoustic Stimulation Used No Patient States Movement Yes - Results and Plan Findings/Impression: Baseline: BPM 140 Variability: Moderate Accelerations: Present Decelerations: Absent Trends in FHR over time: no changes [place] contractions in 10 minutes: 2-3 Impression: reactive Category 1 NST S: Patient here for scheduled NST and reported feeling more contraction intensity than usual. This frequency is common for her. No VB, no LOF. Good FM. O: SVE closed with RN. FFN neg. A/P: Threatened labor in 33rd week, no evidence of labor. Pt reassured and advised to f/u PRN increasing pain or other PTL sx. Seen by CNM. Plan for routine care with clinic f/u in 1-2 weeks. NST performed for anticoagulation use--normal--continue those 2x per week.
== END 2020-11-05 14:50 | disposition home or self-care (01) ==
LOC: WFO 12:35 → FBP 12:39 → WFO 14:50
PROVIDERS: ATTEND Obstetrics & Gynecology
DX: O09.893 Supervision of other high risk pregnancies, third trimester (principal); Z51.81 Encounter for therapeutic drug level monitoring; Z3A.34 34 weeks gestation of pregnancy; Z79.01 Long term (current) use of anticoagulants
CPT/HCPCS: 59025; 82731; 99213

== ENCOUNTER 2020-11-09 12:17 | Outpatient (CLI) | payer BC ==
[2020-11-09 13:34] VITALS: BP 117/66
--- NOTE | 2020-11-10 08:17 | PROCEDURE REPORT ---
- HPI Diagnosis/Indication for NST: Other (High risk , taking high-risk medication (lovenox), history of DVT) Current EDU 12/09/20 Gestation 35 Weeks and 5 Days 3 Para 1 Vital Signs Temperature 98.1 F 11/09/20 13:34 Heart Rate 94 11/09/20 13:34 Respiratory Rate 18 11/09/20 13:34 Blood Pressure 117/66 11/09/20 13:34 O2 Saturation 98 11/09/20 13:34 Temperature 98.1 F 11/09/20 13:34 Heart Rate 94 11/09/20 13:34 Respiratory Rate 18 11/09/20 13:34 Blood Pressure 117/66 11/09/20 13:34 O2 Saturation 98 11/09/20 13:34 - NST Procedure NST Procedure Start Date 11/09/20 Start Time 12:34 Stop Time 13:14 Vibroacoustic Stimulation Used No Patient States Movement Yes - Results and Plan Findings/Impression: Baseline: BPM 125 Variability: Moderate Accelerations: Present Decelerations: Absent Trends in FHR over time: no changes [place] contractions in 10 minutes: 0-1 Impression: reactive Category 1 NST
== END 2020-11-09 13:18 | disposition home or self-care (01) ==
LOC: WFO 12:17 → FBP 12:22 → WFO 13:18
PROVIDERS: ATTEND Obstetrics & Gynecology
DX: O09.893 Supervision of other high risk pregnancies, third trimester (principal); Z86.718 Personal history of other venous thrombosis and embolism; Z79.01 Long term (current) use of anticoagulants
CPT/HCPCS: 59025

== ENCOUNTER 2020-11-12 12:09 | Outpatient (CLI) | payer BC ==
--- NOTE | 2020-11-12 17:27 | Ultrasound Report ---
PROCEDURE: OB Biophysical Profile INDICATIONS: SUPERVISION OF HIGH RISK OUTSIDE/PRIOR DATING DATA: Last menstrual period (LMP): 03/10/2020. LMP-based estimated date of delivery (MARY): 12/15/2020. First dating scan (date and location): 05/01/2020. Estimated date of delivery (MARY) from first dating scan: 12/12/2020. MARY by the provider is 12/15/2020. . TECHNIQUE: Real-time scanning was performed of the fetus, with image documentation and biometric lopez surements. Biophysical profile was also obtained. Endovaginal scanning: No COMPARISON: Prior biophysical profile dated 11/05/2020 FINDINGS: General: A single living intrauterine gestation is present. Presentation: Vertex Placenta: Placental position is posterior fundal, without previa. Amniotic fluid index: 11.9 cm, 29th percentile for gestational age. heart rate: 150 beats per minute. Maternal cervical canal. Suboptimally Visualized. Biophysical profile: Tone: 2 points. Movement: 2 points. Respiration: 2 points. Largest pocket of fluid: 2 points. Umbilical artery Doppler: Normal cord Doppler ratios ranging between 2.3 and 3.1 IMPRESSION: Single living IUP redemonstrated with age estimated at 35 weeks 2 days by prior ultrasound. Normal biophysical profile with score of 8 out of 8 possible points. Normal cord Doppler examination. Reviewed by: MADI Fuentes on 11/12/2020 5:25 PM PST Approved by: Dewayne Chaves MD on 11/12/2020 5:25 PM PST Station ID: [id number]
== END 2020-11-12 12:10 | disposition home or self-care (01) ==
LOC: DI 12:09
PROVIDERS: ATTEND Obstetrics & Gynecology
DX: O09.90 Supervision of high risk pregnancy, unspecified, unspecified trimester (principal); Z3A.35 35 weeks gestation of pregnancy

== ENCOUNTER 2020-11-12 13:21 | Outpatient (CLI) | payer BC ==
[2020-11-12 13:36] VITALS: BP 126/79
--- NOTE | 2020-11-18 13:36 | PROCEDURE REPORT ---
- HPI Diagnosis/Indication for NST: Other (DVT with PE. On Lovenox) Current EDU 12/15/20 Gestation 35 Weeks and 2 Days 3 Para 1 Vital Signs Temperature 36.7 C 11/12/20 13:35 Heart Rate 93 11/12/20 13:35 Respiratory Rate 19 11/12/20 13:35 Blood Pressure 126/79 11/12/20 13:35 O2 Saturation 100 11/12/20 13:35 Temperature 36.7 C 11/12/20 13:35 Heart Rate 93 11/12/20 13:35 Respiratory Rate 19 11/12/20 13:35 Blood Pressure 126/79 11/12/20 13:35 O2 Saturation 100 11/12/20 13:35 - NST Procedure NST Procedure Start Date 11/12/20 Start Time 13:32 Stop Time 14:30 Vibroacoustic Stimulation Used No Patient States Movement Yes - Results and Plan Findings/Impression: Reactive NST with 8/8 BPP Plan: Continue antinatal testing
== END 2020-11-12 14:40 | disposition home or self-care (01) ==
LOC: WFO 13:21 → FBP 13:26 → WFO 14:40
PROVIDERS: ATTEND Obstetrics & Gynecology
DX: O09.90 Supervision of high risk pregnancy, unspecified, unspecified trimester (principal); O88.213 Thromboembolism in pregnancy, third trimester; O22.33 Deep phlebothrombosis in pregnancy, third trimester; I82.409 Acute embolism and thrombosis of unspecified deep veins of unspecified lower extremity; Z3A.35 35 weeks gestation of pregnancy
CPT/HCPCS: 59025

== ENCOUNTER 2020-11-16 13:47 | Outpatient (CLI) | payer BC ==
[2020-11-16 15:23] VITALS: BP 136/81
--- NOTE | 2020-11-16 19:03 | PROCEDURE REPORT ---
- HPI Diagnosis/Indication for NST: Other (anticoagulation for hx of VTE) Current EDU 12/15/20 Gestation 35 Weeks and 6 Days 3 Para 1 Vital Signs Temperature 98.4 F 11/16/20 15:11 Heart Rate 103 H 11/16/20 15:11 Respiratory Rate 17 11/16/20 15:11 Blood Pressure 136/81 H 11/16/20 15:11 O2 Saturation 100 11/16/20 15:11 Temperature 98.4 F 11/16/20 15:11 Heart Rate 103 H 11/16/20 15:11 Respiratory Rate 17 11/16/20 15:11 Blood Pressure 136/81 H 11/16/20 15:11 O2 Saturation 100 11/16/20 15:11 - NST Procedure NST Procedure Start Date 11/16/20 Start Time 14:00 Stop Time 14:25 Vibroacoustic Stimulation Used No Patient States Movement Yes EFM 150 mod marti 15x15 accels no decels TOCO: CTX Q3-4 min, mild - Results and Plan Findings/Impression: 35 yo at 35+6 wga on anticoagulation for hx of PE here for NST Cat I tracing Contractions every 3-4 min, mild SVE 1/long/high/med/mid No significant change from prior exam Reviewed warning signs for labor and need to return to clinic/triage Not planning on epidural . Takes Lovenox at 9pm. Will hold if contractions intensify Cont with twice weekly NST and weekly ERIKA Labor precautions reviewed DX: IUP at 35+6 wga Anticoagulation; hx of PE False labor
== END 2020-11-16 14:50 | disposition home or self-care (01) ==
LOC: WFO 13:47 → FBP 13:50 → WFO 14:50
PROVIDERS: ATTEND Obstetrics & Gynecology
DX: O09.893 Supervision of other high risk pregnancies, third trimester (principal); Z3A.35 35 weeks gestation of pregnancy; Z86.711 Personal history of pulmonary embolism; Z79.01 Long term (current) use of anticoagulants
CPT/HCPCS: 59025

== ENCOUNTER 2020-11-19 11:56 | Outpatient (CLI) | payer BC ==
--- NOTE | 2020-11-20 08:01 | Ultrasound Report ---
PROCEDURE: OB Biophysical Profile INDICATIONS: SUPERVISION OF HIGH RISK OUTSIDE/PRIOR DATING DATA: Last menstrual period (LMP): 03/10/2020. LMP-based estimated date of delivery (MARY): 12/15/2020. First dating scan (date and location): 05/01/2020. Estimated date of delivery (MARY) from first dating scan: 12/12/2020. TECHNIQUE: Real-time scanning was performed of the fetus, with image documentation and biometric lopez surements. Biophysical profile was also obtained. Endovaginal scanning: No COMPARISON: Prior OB biophysical profile dated 11/12/2020 FINDINGS: General: A single living intrauterine gestation is present. Presentation: Vertex Placenta: Placental position is posterior fundal, without previa. Amniotic fluid index: 14.9 cm, normal for gestational age. heart rate: 144 beats per minute. Maternal cervical canal: 2.7 cm long; normal length is 2.5 cm or more. Estimated gestational age from initial scan: 34 weeks 2 days Biophysical profile: Tone: 2 points. Movement: 2 points. Respiration: 2 points. Largest pocket of fluid: 2 points. Umbilical artery Doppler: Normal cord Doppler with ratios ranging between 2.5 and 3.1 IMPRESSION: 1. Single living IUP redemonstrated. 2. Normal biophysical profile score 8 out of 8 possible point 3. Nnormal cord Doppler exam. Reviewed by: MADI Fuentes on 11/20/2020 8:00 AM PST Approved by: Wei Lara MD on 11/20/2020 8:00 AM PST Station ID: [id number]
== END 2020-11-19 11:57 | disposition home or self-care (01) ==
LOC: DI 11:56
PROVIDERS: ATTEND Obstetrics & Gynecology
DX: O09.93 Supervision of high risk pregnancy, unspecified, third trimester (principal); Z3A.34 34 weeks gestation of pregnancy

== ENCOUNTER 2020-11-19 13:19 | Outpatient (CLI) | payer BC ==
[2020-11-19 13:34] VITALS: BP 124/72
--- NOTE | 2020-11-20 10:18 | Labor Flowsheet ---
Labor Flowsheet Datetime Report Generated by CPN: 11/20/2020 10:18 Datetime: 11/20/2020 08:59 VITAL SIGNS NBP Sys/Tsering/Mean (mmHg): 135 : 80 : 93 Pulse: 119 COMMUNICATION LaborFlag: Labor Datetime: 11/19/2020 13:53 SpO2 (%): 99 Datetime: 11/12/2020 13:34 Respirations: 19 Temperature (C): 36.7 Datetime: 11/02/2020 14:01 Stage of : Labor
--- NOTE | 2020-11-23 22:47 | PROCEDURE REPORT ---
- HPI Diagnosis/Indication for NST: Other (anticoagulation 2/2 hx of provoked DVT) Current EDU 12/15/20 Gestation 36 Weeks and 2 Days 2 Para 1 Vital Signs Temperature 97.9 F 11/19/20 13:32 Heart Rate 93 11/19/20 13:32 Respiratory Rate 16 11/19/20 13:32 Blood Pressure 124/72 11/19/20 13:32 O2 Saturation 100 11/19/20 13:32 Temperature 97.9 F 11/19/20 13:32 Heart Rate 93 11/19/20 13:32 Respiratory Rate 16 11/19/20 13:32 Blood Pressure 124/72 11/19/20 13:32 O2 Saturation 100 11/19/20 13:32 - NST Procedure NST Procedure Start Date 11/19/20 Start Time 13:30 Stop Time 13:50 Vibroacoustic Stimulation Used No Patient States Movement Yes EFM: 135 mod marti 15x15 accels no decels TOCO: irritable - Results and Plan Findings/Impression: 35 yo at 36+2 wga with complicated by anticoagulation use for hx of DVT here for NST Cat I tracing Cnt with twice weekly NST and weekly ERIKA until 39 wga IOL at 39 wga DX: IUP at 36+2, anticoagulation therapy
== END 2020-11-19 14:00 | disposition home or self-care (01) ==
LOC: WFO 13:19 → FBP 13:26 → WFO 14:00
PROVIDERS: ATTEND Obstetrics & Gynecology
DX: O22.33 Deep phlebothrombosis in pregnancy, third trimester (principal); I82.409 Acute embolism and thrombosis of unspecified deep veins of unspecified lower extremity; Z79.01 Long term (current) use of anticoagulants; Z3A.36 36 weeks gestation of pregnancy
CPT/HCPCS: 59025

== ENCOUNTER 2020-11-23 08:00 | Outpatient (CLI) | payer BC | END 2020-11-23 23:59 | disposition home or self-care (01) | LOC: LAB 08:00 | PROVIDERS: ATTEND Obstetrics & Gynecology | DX: Z36.85 Encounter for antenatal screening for Streptococcus B (principal) | CPT/HCPCS: 87797 ==

== ENCOUNTER 2020-11-23 11:38 | Outpatient (CLI) | payer BC ==
[2020-11-23 12:04] VITALS: BP 116/72
--- NOTE | 2020-11-23 22:50 | PROCEDURE REPORT ---
- HPI Diagnosis/Indication for NST: Other (anticoagulation) Current EDU 12/15/20 Gestation 36 Weeks and 6 Days 3 Para 1 Vital Signs Temperature 98.2 F 11/23/20 12:02 Heart Rate 100 11/23/20 12:02 Respiratory Rate 16 11/23/20 12:02 Blood Pressure 116/72 11/23/20 12:02 O2 Saturation 98 11/23/20 12:02 Temperature 98.2 F 11/23/20 12:02 Heart Rate 100 11/23/20 12:02 Respiratory Rate 16 11/23/20 12:02 Blood Pressure 116/72 11/23/20 12:02 O2 Saturation 98 11/23/20 12:02 - NST Procedure NST Procedure Start Date 11/23/20 Start Time 12:00 Stop Time 12:25 Vibroacoustic Stimulation Used No Patient States Movement Yes EFM 140 mod marti 15x15 accels no Decel TOCO: Q5-10 mild - Results and Plan Findings/Impression: 35 yo at 36+6 wga on anticoagulation here for NST Cat I tracing Cont with twice weekyl NST and weekly ERIKA Prodromal labor, non-painful contractions. -Has had serial exams in palst with no change -Declines exam today DX: Anticoagulation Hx of DVT IUP at 36+6 wga
== END 2020-11-23 12:30 | disposition home or self-care (01) ==
LOC: WFO 11:38
PROVIDERS: ATTEND Obstetrics & Gynecology
DX: O22.33 Deep phlebothrombosis in pregnancy, third trimester (principal); Z3A.36 36 weeks gestation of pregnancy; Z36.85 Encounter for antenatal screening for Streptococcus B; Z79.01 Long term (current) use of anticoagulants
CPT/HCPCS: 59025; 87797

== ENCOUNTER 2020-11-26 12:26 | Outpatient (CLI) | payer BC ==
--- NOTE | 2020-11-26 16:27 | Ultrasound Report ---
PROCEDURE: OB Biophysical Profile INDICATIONS: SUPERVISION OF HIGH RISK OUTSIDE/PRIOR DATING DATA: Last menstrual period (LMP): 03/10/2020. LMP-based estimated date of delivery (MARY): 12/15/2020. First dating scan (date and location): 05/01/2020. Estimated date of delivery (MARY) from first dating scan: 12/12/2020. TECHNIQUE: Real-time scanning was performed of the fetus, with image documentation and biometric lopez surements. Biophysical profile was also obtained. Endovaginal scanning: Not needed COMPARISON: All prior available OB ultrasound studies for this . FINDINGS: General: A single living intrauterine gestation is present. Presentation: Vertex Placenta: Placental position is posterior fundal, without previa. Amniotic fluid index: 14.0 cm, 53 percentile for gestational age. heart rate: 141 beats per minute. Maternal cervical canal: Normal, closed. Biophysical profile: Tone: 2 points. Movement: 2 points. Respiration: 2 points. Largest pocket of fluid: 2 points. Umbilical artery Doppler: Normal at the cord insertion, middle third of the cord and at the placenta where well seen. IMPRESSION: Normal biophysical profile, normal umbilical artery systolic/diastolic ratio where well seen. Normal amniotic fluid volume. Current presentation is vertex. Reviewed by: Js Messer MD on 11/26/2020 4:25 PM PST Approved by: Js Messer MD on 11/26/2020 4:25 PM PST Station ID: [id number]
--- NOTE | 2020-11-27 12:28 | PROCEDURE REPORT ---
- HPI Diagnosis/Indication for NST: Other (History if pumonary embolus; on anticoagulation (high risk medication)) - NST Procedure NST Procedure Start Time 12:00 Stop Time 12:25 - Results and Plan Findings/Impression: Baseline: BPM 140 Variability: Moderate Accelerations: Present Decelerations: Absent Trends in FHR over time: baseline change to 155 BPM [place] contractions in 10 minutes: 0-1 Impression: reactive Category 1 NST
== END 2020-11-26 12:27 | disposition home or self-care (01) ==
LOC: DI 12:26
PROVIDERS: ATTEND Obstetrics & Gynecology
DX: O09.93 Supervision of high risk pregnancy, unspecified, third trimester (principal)

== ENCOUNTER 2020-11-26 14:01 | Outpatient (CLI) | payer BC ==
[2020-11-26 14:21] VITALS: BP 123/89
== END 2020-11-26 14:45 | disposition home or self-care (01) ==
LOC: WFO 14:01 → FBP 14:08 → WFO 14:45
PROVIDERS: ATTEND Obstetrics & Gynecology
DX: O09.899 Supervision of other high risk pregnancies, unspecified trimester (principal); Z86.711 Personal history of pulmonary embolism; Z79.01 Long term (current) use of anticoagulants; Z3A.00 Weeks of gestation of pregnancy not specified
CPT/HCPCS: 59025

== ENCOUNTER 2020-11-30 11:03 | Outpatient (CLI) | payer BC ==
[2020-11-30 11:20] VITALS: BP 140/69
--- NOTE | 2020-11-30 16:56 | PROCEDURE REPORT ---
- HPI Diagnosis/Indication for NST: Other (High risk , taking high-risk medication (lovenox), history of DVT) Current EDU 12/15/20 Gestation 37 Weeks and 6 Days 3 Para 1 Vital Signs Temperature 98.2 F 11/30/20 11:19 Heart Rate 96 11/30/20 11:19 Respiratory Rate 16 11/30/20 11:19 Blood Pressure 140/69 H 11/30/20 11:19 O2 Saturation 99 11/30/20 11:19 Temperature 98.2 F 11/30/20 11:19 Heart Rate 96 11/30/20 11:19 Respiratory Rate 16 11/30/20 11:19 Blood Pressure 140/69 H 11/30/20 11:19 O2 Saturation 99 11/30/20 11:19 - NST Procedure NST Procedure Start Date 11/30/20 Start Time 11:15 Stop Time 11:40 Vibroacoustic Stimulation Used No Patient States Movement Yes - Results and Plan Findings/Impression: Baseline: BPM 145 Variability: Moderate Accelerations: Present Decelerations: Absent Trends in FHR over time: no changes [place] contractions in 10 minutes: 0 Impression: reactive Category 1 NST
== END 2020-11-30 11:45 | disposition home or self-care (01) ==
LOC: WFO 11:03 → FBP 11:09 → WFO 11:45
PROVIDERS: ATTEND Obstetrics & Gynecology
DX: O22.33 Deep phlebothrombosis in pregnancy, third trimester (principal); Z3A.37 37 weeks gestation of pregnancy; Z79.01 Long term (current) use of anticoagulants
CPT/HCPCS: 59025

== ENCOUNTER 2020-12-03 01:58 | Inpatient (IN) | payer BC ==
[2020-12-03 02:24] LABS: RUPTURE OF MEMBRANES PLUS POSITIVE (NEGATIVE)
[2020-12-03] MEDS ORDERED: LACTATED RINGERS 1,000 ML IV PRN (02:27)
[2020-12-03] MEDS ORDERED: LIDOCAINE-MPF 1% 30 ML VIAL ID PRN (02:27)
[2020-12-03] MEDS ORDERED: TERBUTALINE 1 MG/ML VIAL SUBQ PRN (02:27)
[2020-12-03] MEDS ORDERED: CARBOPROST TROMETHAMINE 250 MCG/ML AMP IM PRN (02:27)
[2020-12-03] MEDS ORDERED: TRANEXAMIC ACID IN NACL 1,000 MG/100 ML BAG IV PRN (02:27)
[2020-12-03] MEDS ORDERED: OXYTOCIN/SODIUM CHLORIDE 500 ML IV PRN (02:27)
[2020-12-03] MEDS ORDERED: miSOPROStoL 200 MCG TABLET BC PRN (02:27)
[2020-12-03] MEDS ORDERED: ONDANSETRON 4 MG/2 ML VIAL IVP PRN (02:27)
[2020-12-03] MEDS ORDERED: SODIUM CHLORIDE FLUSH 0.9% 10 ML SYRINGE IVP PRN (02:27)
[2020-12-03] MEDS ORDERED: OXYTOCIN 10 UNIT/ML VIAL IM PRN (02:27)
[2020-12-03] MEDS ORDERED: METHYLERGONOVINE 0.2 MG/ML VIAL IM PRN (02:27)
[2020-12-03] MEDS ORDERED: fentaNYL 100 MCG/2 ML VIAL IVP PRN (02:27)
--- NOTE | 2020-12-03 02:33 | HISTORY & PHYSICAL EXAMINATION ---
Admit History - Smoking Status: Never smoker - Other Maternal History Other Maternal History: CC: broken bag of water HPI: SROM clear at 23:30 following contractions starting at 22:00. UCs for the past few days, last dose of lovenox was 12/01. No VB. Good FM. PMH: PE hx provoked by OCP Exercise-induced asthma Anemia Depression History of PPH Blood transfusion after hemorrhage on xarelto PSH: Tonsillectomy, LEEP 2011 Allergies: none. Contraindications: estrogen (provoked PE) Meds: iron, PNV. Lovenox 40mg daily last taken 12/01/20. SH: no t/e/d FH: no anesthesia complications ROS: no cough or fever OB: . 5w SAB. at term 2013, 8#9oz, PPH Dating: US on 03/10/20 gives MARY 12/16/2019 US on 05/01/2020 at 7w6d gives MARY 12/13/2019, cwd AB+/ Rub imm Genetics: thickened NT. normal cf DNA, Declined amnio. FAS Normal 22 weeks scan. Posterior placenta Growth US on 10/08/2020 EFW 61% TDaP complete, flu vax complete Glucola 123 HSV: denies GBS neg MOD: anticipate Desires BTL- Consents for BTL signed at 34 weeks O: AVSS SVE with RN 3.5/70/-2 Category 1 NST [place] q1-3min ROM test positive A/P: 35yo at 38w2d by LMP c/w 7w US with spontaneous contractions and SROM clear at 23:30. complicated by lovenox use due to hx of PE, last dose was 12/01 so no special care needed. SCD if gets epidural. Will resume lovenox . Hx of PPH: type and cross for 2, hemorrhage meds in room at delivery, active mgmt of 3rd stage of labor planned. Hx of depression, stable off of meds: pt doesn't want to immediately resume zoloft. Will watch PP. Fetus: Vertex, EFW = 8.25#, normal anatomy scan, normal CF DNA. NT was thickened, pt was seen by MFM. Echo per pt was normal. Cat 1 NST. Clear fluid. Labor: spontaneous, anticipate . May have epidural if desired. GBS neg. Tubal: pt desires sterilization, declines reversible methods. Wants whether she has a or a vaginal delivery. Leave epidural in place for tubal if she gets one for pain control in labor. : PPTL. Rh+, RI, , s/p Tdap and flu vax. Watch depression. Meds/Allgy - Home Medications Home Medications: Ambulatory Orders Medication Instructions Recorded Confirmed Enoxaparin [Lovenox] 40 mg SUBQ Q24H 12/03/20 12/03/20 No122/Iron/Folic Acid 1 tab ORAL DAILY 12/03/20 12/03/20 [ Multi Tablet] - Allergies Allergies/Adverse Reactions: Allergies Allergy/AdvReac Type Severity Reaction Status Date / Time No Known Drug Allergies Allergy Verified 12/03/20 02:24 Physical - Abdominal Exam Vital Signs: Temp Pulse Resp BP Pulse Ox 98.4 F 91 22 118/64 100 12/03/20 02:05 12/03/20 02:05 12/03/20 02:05 12/03/20 02:05 12/03/20 02:05
[2020-12-03 03:44] LABS: BASOPHILS % (AUTO) 0.2 %; EOSINOPHILS % (AUTO) 0.4 %; HCT - HEMATOCRIT 37.8 % (37.0-47.0); HGB - HEMOGLOBIN 12.6 g/dL (12.0-16.0); LYMPHOCYTES # (AUTO) 1.7 10^3/uL (1.5-3.5); LYMPHOCYTES % (AUTO) 20.5 %; MEAN CORPUSCULAR HEMOGLOBIN 29.2 pg (27.0-31.0); MEAN CORPUSCULAR HGB CONC 33.3 g/dL (32.0-36.0); MEAN CORPUSCULAR VOLUME 87.5 fL (81.0-99.0); MEAN PLATELET VOLUME 10.7 fL (7.9-10.8); MONOCYTES # (AUTO) 0.7 10^3/uL (0.0-1.0); MONOCYTES % (AUTO) 8.4 %; NEUTROPHILS # (AUTO) 5.8 10^3/uL (1.5-6.6); PLT - PLATELET COUNT 211 10^3/uL (130-450); RED BLOOD COUNT 4.32 10^6/uL (4.20-5.40); RED CELL DISTRIBUTION WIDTH 14.1 % (12.0-15.0); WHITE BLOOD COUNT 8.3 x10^3/uL (4.8-10.8)
[2020-12-03] MEDS ORDERED: HYDROCORTISONE 1% CREAM 28 GM TUBE PR PRN (08:30)
[2020-12-03] MEDS ORDERED: diphenhydrAMINE 25 MG CAPSULE PO PRN (08:30)
[2020-12-03] MEDS ORDERED: WITCH HAZEL/GLYCERIN 1 PAD TOP PRN (08:30)
--- NOTE | 2020-12-03 08:33 | DELIVERY NOTE ---
Delivery Note - Labor Labor: positive: Spontaneous - Delivery Method Delivery Method: positive: Spontaneous vaginal delivery - Presentation Presentation: positive: Vertex - Nuchal Cord Nuchal Cord: positive: None - Anesthetic Anesthetic: positive: Lidocaine - 1% plain Volume: positive: Other (15cc) - Amniotic Fluid Description Amniotic Fluid Description: positive: Clear - Episiotomy Type Episiotomy Type: positive: None - Laceration Laceration: positive: Sulcus (left), Vaginal - Suture Suture Type: positive: Vicryl Suture Size: positive: 2-0, 4-0 - Delivery Outcome Delivery Outcome: positive: Livebirth - : positive: Placed in direct skin contact with mother, Stimulated, Warmed, [place] used [place] sex: positive: Female : Apgars 9/9 - Cord Cord: positive: 3 vessels - Placenta Placenta: positive: Intact, Spontaneous - Estimated Blood Loss Estimated Blood Loss (in cc): 350 - Post Delivery Events Post Delivery Events: positive: No post delivery events - Delivery Comments (Free Text/Narrative) Delivery Comments (Free Text/Narrative): Uncomplicated delivery, normal anatomy restored with suturing. Plan for tubal.
[2020-12-03] MEDS ORDERED: SODIUM CHLORIDE FLUSH 0.9% 10 ML SYRINGE IVP SCH (09:00)
[2020-12-03] MEDS: ACETAMINOPHEN 325 MG TABLET PO PRN ×3 (09:51→21:43)
[2020-12-03] MEDS: DOCUSATE SODIUM 100 MG CAPSULE PO SCH ×2 (09:51→21:43)
[2020-12-03] MEDS: IBUPROFEN 600 MG TABLET PO SCH ×3 (09:51→21:43)
[2020-12-04] MEDS: IBUPROFEN 600 MG TABLET PO SCH ×2 (05:51→11:39)
[2020-12-04] MEDS: ACETAMINOPHEN 325 MG TABLET PO PRN ×2 (05:52→11:39)
--- NOTE | 2020-12-04 08:11 | Discharge Plan ---
Discharge Plan Problem Reviewed?: Yes Disposition: Home, Self Care Condition: Good Prescriptions: Docusate Sodium 100Mg Capsule [Colace 100Mg Capsule] 100 mg PO BID PRN #30 cap PRN Reason: to soften stool Diet: Regular Shower Restrictions: No Driving Restrictions: No No Smoking: If you smoke, Please STOP! Call for help. Follow-up with: Danyell Betancourt MD [Provider Admit Priv/Credential] - 1 Week
[2020-12-04 08:27] VITALS: BP 127/74
[2020-12-04] MEDS: DOCUSATE SODIUM 100 MG CAPSULE PO SCH (11:39)
--- NOTE | 2020-12-04 12:15 | Labor Flowsheet ---
Labor Flowsheet Datetime Report Generated by CPN: 12/04/2020 12:14 Datetime: 12/04/2020 08:17 VITAL SIGNS NBP Sys/Tsering/Mean (mmHg): 127 : 74 : 88 Pulse: 86 Datetime: 12/04/2020 05:49 SpO2 (%): 97 Datetime: 12/03/2020 09:15 Stage of : Recovery Respirations: 16 Temperature (C): 37.0 Datetime: 12/03/2020 09:14 LaborFlag: Labor Datetime: 12/03/2020 07:53 Comments: questionable FHR vs Maternal heart rate. audbile around 140s whennot pushing. provider aw are. baby born at 0753 with apgars of 9/9 Datetime: 12/03/2020 07:45 UTERINE ACTIVITY Monitor Mode: External Frequency (min): 2-3 Quality: Strong Duration (sec): 60-90 Pattern: Tachysystole: > 5 Contractions in 10 Minutes Resting Tone (Palpate): Relaxed FHR Baseline Rate : 145 Datetime: 12/03/2020 07:32 STAGE 2 Pushing: Urge to Push Pushing Position: Pushing with Contractions Pushing Progress: Descent with Pushing Datetime: 12/03/2020 07:31 VAGINAL EXAM Dilatation (cm): 10.0 Exam by: ben Datetime: 12/03/2020 07:30 Contraction Comments: no augmentation, ben called into room, see provider note Monitor Interventions for FHR: Ultrasound Adjusted Variability: Moderate 6-25 bpm Decelerations: Late Communication Comments: ben at bedside Datetime: 12/03/2020 07:22 Station: 1 Vaginal Exam Comments: anterior lip COMMUNICATION Communication: Call/Page Placed to Provider Datetime: 12/03/2020 07:20 Patient Position/Activity: Semi-Fowlers Patient Care Comments: pt feeling more urge to push Datetime: 12/03/2020 07:02 Pain Assessment Comments: instructed to breathe throught ctxs and not push Datetime: 12/03/2020 06:55 PAIN Pain Scale: 8 Pain Presence: Intermittent Pain Type: Contraction; Pressure Pain Location: Abdomen; Perineum Pain Relief Measures: Pain Medication Given Pain Coping: Breathing Through Contractions Comfort Measures: Family Support Datetime: 12/03/2020 06:54 Hygiene: Carla Care; Underpad Changed Datetime: 12/03/2020 06:53 I/O Interventions: Up to BR Datetime: 12/03/2020 06:41 MEDICATIONS Analgesics/Sedatives: Fentanyl (mcg) @ 50 Datetime: 12/03/2020 06:31 PATIENT CARE IV/Blood Work: IV Bolus Started Datetime: 12/03/2020 06:30 ASSESSMENT A Monitor Mode: Telemetry Accelerations: 15X15 Category: Category II Datetime: 12/03/2020 05:42 Temperature Route: Oral Datetime: 12/03/2020 05:38 Effacement (%): 100 Vaginal Bleeding: Normal Show Datetime: 12/03/2020 04:59 Medication Comments: nitrous stopped Datetime: 12/03/2020 03:40 ANESTHESIA Anesthesia Plans: Uncertain Datetime: 12/03/2020 03:00 Provider Reviewed Strip: Yes TEACHING Plan of Care: Plan of Care Discussed; Vaginal Delivery Labor/Induction: Labor Stages; Interventions; Activity; Pushing Methods Pain Management: IV Narcotics; Epidural; PRN Medications; Pain Scale/Goals; Comfort Measures Provider Notified (Name): Dr Clay
--- NOTE | 2020-12-04 13:56 | DISCHARGE SUMMARY ---
Physician: Latanya Clay MD DATE OF ADMISSION: 12/03/2020 DATE OF DISCHARGE: ADMISSION DIAGNOSES: 1. Spontaneous labor at term. 2. History of pulmonary embolism. DISCHARGE DIAGNOSES: 1. Status post spontaneous vaginal delivery at term. PROCEDURES: On 12/03/2020, spontaneous delivery of a liveborn female, Apgars were 9 and 9. EBL was 350 mL HOSPITAL COURSE: The patient was admitted in active spontaneous labor. She did not receive an epidu ral. She had an uncomplicated labor course and vaginal delivery. Her course was also unc omplicated. Her Lovenox was restarted at 24 hours, at home. She was not having any problems with bl eeding, urination, or mood. Her pain was under good control. DISCHARGE EXAMINATION: VITAL SIGNS: She is afebrile with normal vital signs. GENERAL: Alert and pleasant, in no apparent distress. She was smiling. ABDOMEN: Soft, nontender, nondistended. Fundus firm, nontender at the umbilicus. EXTREMITIES: No lower extremity clubbing, cyanosis, edema or cords. DISCHARGE MEDICATIONS: 1. Tylenol p.r.n. pain. 2. Colace p.r.n. to soften stool. 3. Lovenox, continue at 40 mg daily with plan to continue this for 6-8 weeks . DISCHARGE DISPOSITION: Home. CONDITION: Good. FOLLOWUP: Followup in [address] Betancourt. TD: 12/04/2020 08:16
== END 2020-12-04 12:00 | disposition home or self-care (01) | DRG 805 ==
LOC: WFO 01:58 → FBP 01:59 → WFO 02:26 → FBP 02:27
PROVIDERS: ADMIT Obstetrics & Gynecology; ATTEND Obstetrics & Gynecology
PROC: 10E0XZZ Delivery of Products of Conception, External Approach (ICD-10-PCS; principal; 2020-12-03)
PROC: 0UQG7ZZ Repair Vagina, Via Natural or Artificial Opening (ICD-10-PCS; 2020-12-03)
DX: O9A.22 Injury, poisoning and certain other consequences of external causes complicating childbirth (principal); I26.99 Other pulmonary embolism without acute cor pulmonale; Z37.0 Single live birth; O71.4 Obstetric high vaginal laceration alone; T38.5X5A Adverse effect of other estrogens and progestogens, initial encounter; O99.02 Anemia complicating childbirth; D64.9 Anemia, unspecified; Z20.822 Contact with and (suspected) exposure to COVID-19; Z3A.38 38 weeks gestation of pregnancy; Z79.01 Long term (current) use of anticoagulants; Z79.899 Other long term (current) drug therapy; Z86.59 Personal history of other mental and behavioral disorders
CPT/HCPCS: 36415; 84112; 85025; 86850; 86900; 86901; 86920; 87635; 99213; A9270; J7120

== ENCOUNTER 2023-06-27 08:39 | Outpatient (CLI) | payer BC ==
[2023-06-27 13:05] LABS: BASOPHILS % (AUTO) 0.5 %; EOSINOPHILS # (AUTO) 0.1 10^3/uL (0.0-0.7); EOSINOPHILS % (AUTO) 1.7 %; HCT - HEMATOCRIT 41.4 % (37.0-47.0); HGB - HEMOGLOBIN 12.9 g/dL (12.0-16.0); LYMPHOCYTES # (AUTO) 1.6 10^3/uL (1.5-3.5); LYMPHOCYTES % (AUTO) 26.4 %; MEAN CORPUSCULAR HEMOGLOBIN 25.9 pg (27.0-31.0); MEAN CORPUSCULAR HGB CONC 31.2 g/dL (32.0-36.0); MEAN PLATELET VOLUME 10.6 fL (7.9-10.8); MONOCYTES # (AUTO) 0.5 10^3/uL (0.0-1.0); MONOCYTES % (AUTO) 8.3 %; NEUTROPHILS # (AUTO) 3.7 10^3/uL (1.5-6.6); NEUTROPHILS % (AUTO) 62.8 %; PLT - PLATELET COUNT 226 10^3/uL (130-450); RED BLOOD COUNT 4.99 10^6/uL (4.20-5.40); RED CELL DISTRIBUTION WIDTH 13.8 % (12.0-15.0); WHITE BLOOD COUNT 5.9 x10^3/uL (4.8-10.8)
[2023-06-27 13:12] LABS: ALBUMIN 4.3 g/dL (3.2-5.5); CHOL/HDL RATIO 7.5 (<4.4); CHOLESTEROL 254 mg/dL; HDL CHOLESTEROL 34 mg/dL; LDL CHOLESTEROL,CALCULATED 145 mg/dL; LDL/HDL RATIO 4.3 (<4.4); TRIGLYCERIDES 374 mg/dL (48-352); VLDL CHOLESTEROL 75 mg/dL
[2023-06-27 13:14] LABS: THYROID STIMULATING HORMONE 1.49 uIU/mL (0.34-5.60)
[2023-06-27 14:14] LABS: ALKALINE PHOSPHATASE 67 IU/L (42-121)
[2023-06-27 21:04] LABS: ALBUMIN/GLOBULIN RATIO 1.4 (1.0-2.2); ALT ALANINE AMINOTRANSFERASE 27 IU/L (10-60); AST ASPARTATE AMINOTRANSFERASE 21 IU/L (10-42); BILIRUBIN,TOTAL 0.4 mg/dL (0.2-1.0); BUN - BLOOD UREA NITROGEN 10 mg/dL (6-20); CALCIUM 9.2 mg/dL (8.5-10.3); CARBON DIOXIDE - CO2 27 mmol/L (21-32); CHLORIDE 104 mmol/L (101-111); CREATININE 0.8 mg/dL (0.6-1.3); GFR - MDRD 81 (>89); GLUCOSE 91 mg/dL (74-104); POTASSIUM 4.2 mmol/L (3.5-4.5); SODIUM 137 mmol/L (135-145); TOTAL PROTEIN 7.4 g/dL (6.4-8.9)
== END 2023-06-27 08:40 | disposition home or self-care (01) ==
LOC: LAB.N 08:39
PROVIDERS: ATTEND Nurse Practitioner
DX: Z51.81 Encounter for therapeutic drug level monitoring (principal); Z13.220 Encounter for screening for lipoid disorders; R53.83 Other fatigue; F32.A Depression, unspecified; Z79.899 Other long term (current) drug therapy
CPT/HCPCS: 36415; 80053; 80061; 83721; 84443; 85025